=== PATIENT | female | born 1965 | race African-American/Black ===

== ENCOUNTER 2016-12-19 22:06 | Emergency (ER) | payer SELFPAY ==
[~2016-12-19 22:06] MED LIST: ATOR40TA49 PO; LISI-587 PO
[2016-12-19 22:07] VITALS: BP 196/105; PULSE 73; RESP 16; TEMP 97.8; O2SAT 96
== END 2016-12-19 23:04 | disposition left against medical advice (07) ==
LOC: NED 22:06
DX: Z53.21 Procedure and treatment not carried out due to patient leaving prior to being seen by health care provider (principal)
CPT/HCPCS: 99281

== ENCOUNTER 2018-03-10 21:38 | Emergency (ER) | payer SELFPAY ==
[2018-03-11] MEDS ORDERED: ATOR40TA16 PO (20:26)
[2018-03-11] MEDS ORDERED: METF500T PO (20:26)
[2018-03-11] MEDS ORDERED: LISI20TA3 PO (20:26)
== END 2018-03-10 22:11 | disposition left against medical advice (07) ==
LOC: NED 21:38
DX: R10.9 Unspecified abdominal pain (principal); Z53.21 Procedure and treatment not carried out due to patient leaving prior to being seen by health care provider
CPT/HCPCS: 99281

== ENCOUNTER 2018-03-11 19:19 | Inpatient (IN) | payer SELFPAY ==
[2018-03-11] MEDS ORDERED: IOHEXOL 350 MG/ML 10 ML VIAL (for RAD DIAG) IVCONTRAST ONE (19:20)
[2018-03-11 19:35] VITALS: PULSE 105; RESP 16; TEMP 98.4; O2SAT 98
[2018-03-11] MEDS ORDERED: METF500T PO (20:26)
[2018-03-11] MEDS ORDERED: ATOR40TA16 PO (20:26)
[2018-03-11] MEDS ORDERED: LISI20TA3 PO (20:26)
[2018-03-11] MEDS ORDERED: SODIUM CHLORIDE 0.9% FLUSH 10 ML FLUSH IV FLUSH PRN (20:45)
[2018-03-11] MEDS ORDERED: SODIUM CHLOR 0.9% 1000 ML INJ 1,000 ML IV SCH (20:45)
[2018-03-11] MEDS ORDERED: MORPHINE SULFATE 4 MG/ML INJ IV PUSH ONE (20:45)
--- NOTE | 2018-03-11 20:48 | PD ---
HPI Chief Complaint: Flank/Kidney Pain Time Seen by Provider: 20:45 Travel History International Travel<30 days: No Contact w/Intl Traveler<30days: No Traveled to known affect area: No History of Present Illness HPI 52-year-old female presents to the emergency department for 2 days of left lower quadrant abdominal pain that she considers severe. Patient has had nausea with some vomiting and has noted some blood in her stool. Patient does not know she has had a previous history of colitis or diverticulitis. Patient denies history of kidney stones. Patient had urinary frequency and urgency but no hematuria. Patient had subjective chills but denies fever. Patient is unable to identify exacerbating or alleviating factors. Past medical history is significant for hypertension dyslipidemia and diabetes. Patient has had previous . PFS Past Medical History Narrative Medical Diabetes hypertension dyslipidemia CVA no tobacco use nursing notes reviewed Arthritis: No Asthma: No Atrial Fibrillation: No Autoimmune Disease: No Blood Disorders: No Anxiety: No Depression: Yes Heart Rhythm Problems: No Cancer: No Cardiac Catheterization: No Cardiovascular Problems: Yes (PALPITATIONS RECENTLY) High Cholesterol: Yes Chemotherapy: No Chest Pain: Yes Congestive Heart Failure: No COPD: No Cerebrovascular Accident: Yes (PT STATES "SLIGHT STROKE") Diabetes: Yes Patient Takes Glucophage: Yes Diminished Hearing: No Endocrine: No GERD: No Glaucoma: No Genitourinary: No Headaches: Yes Hepatitis: No Hiatal Hernia: No Hypertension: Yes Immune Disorder: No Kidney Stones: No Musculoskeletal: Yes Neurologic: No Psychiatric: No Reproductive: No Respiratory: No Migraines: No Myocardial Infarction: No Radiation Therapy: No Renal Failure: No Seizures: No Sickle Cell Disease: No Sleep Apnea: No Thyroid Disease: No Ulcer: No PNEUMOCCOCAL Vaccine (Year): 1 ?: Not : 5 Para: 4 Miscarriage: 1 Tubal Ligation: Yes Past Surgical History Abdominal Surgery: No AICD: No Appendectomy: No Arteriovenous Shunt: No Cardiac Surgery: No Section: Yes (X 2) Cholecystectomy: No Coronary Artery Bypass Graft: No Ear Surgery: No Endocrine Surgery: No Eye Surgery: No Genitourinary Surgery: No Gynecologic Surgery: Yes (C SECTION AND TUBALIGATION) Insulin Pump: No Joint Replacement: No Oral Surgery: Yes (LIP SURGERY) Pacemaker: No Thoracic Surgery: No Other Surgery: Yes (TUMOR FROM LIP REMOVED AGE 9-TUMOR REOVED FROM RIGHT ARM AGE 2) Social History Alcohol Use: No Tobacco Use: No Substance Use: No Allergies-Medications (Allergen,Severity, Reaction): Coded Allergies: No Known Allergies (Verified Adverse Reaction, Unknown, 03/11/18) Reported Meds & Prescriptions Reported Meds & Active Scripts Active Reported Metformin (Metformin HCl) 500 Mg Tab 500 Mg PO DAILY With a meal Atorvastatin (Atorvastatin Calcium) 40 Mg Tab 40 Mg PO HS Lisinopril-Hctz 20-25 Mg Tab 1 Tab PO DAILY Review of Systems Except as stated in HPI: all other systems reviewed are Neg Physical Exam Narrative GENERAL: Well-developed well-nourished female no acute distress no respiratory distress SKIN: Warm and dry. HEAD: Normocephalic. EYES: No scleral icterus. No injection or drainage. NECK: Supple, trachea midline. No JVD or lymphadenopathy. CARDIOVASCULAR: Regular rate and rhythm without murmurs, gallops, or rubs. RESPIRATORY: Breath sounds equal bilaterally. No accessory muscle use. GASTROINTESTINAL: Abdomen soft, tender left lower quadrant to palpation without guarding or rebound, nondistended. MUSCULOSKELETAL: No cyanosis, or edema. BACK: Nontender without obvious deformity. No CVA tenderness. Data Data Last Documented VS Vital Signs Date Time Temp Pulse Resp B/P (MAP) Pulse Ox O2 Delivery O2 Flow Rate FiO2 03/11/18 22:00 99 16 154/81 (105) 96 Room Air 03/11/18 19:35 98.4 Orders Orders Complete Blood Count With Diff (03/11/18 20:45) Comprehensive Metabolic Panel (03/11/18 20:45) Lipase (03/11/18 20:45) Lactic Acid (03/11/18 20:45) Urinalysis - C+S If Indicated (03/11/18 20:45) Ct Abd/Pel W Iv Contrast(Rout) (03/11/18 20:45) Iv Access Insert/Monitor (03/11/18 20:45) Ecg Monitoring (03/11/18 20:45) Oximetry (03/11/18 20:45) Sodium Chlor 0.9% 1000 Ml Inj (Ns 1000 M (03/11/18 20:45) Sodium Chloride 0.9% Flush (Ns Flush) (03/11/18 20:45) Chest, Single Ap (03/11/18 20:45) Morphine Inj (Morphine Inj) (03/11/18 20:45) Iohexol 350 Inj (Omnipaque 350 Inj) (03/11/18 19:20) Ciprofloxacin 400 Mg Premix (Cipro 400 M (03/12/18 00:00) Metronidazole 500 Mg Inj (Flagyl 500 Mg (03/12/18 00:00) Morphine Inj (Morphine Inj) (03/12/18 00:00) Labs Laboratory Tests Test 03/11/18 21:00 03/11/18 21:05 White Blood Count 15.5 TH/MM3 Red Blood Count 4.46 MIL/MM3 Hemoglobin 12.8 GM/DL Hematocrit 38.5 % Mean Corpuscular Volume 86.5 FL Mean Corpuscular Hemoglobin 28.7 PG Mean Corpuscular Hemoglobin Concent 33.1 % Red Cell Distribution Width 13.9 % Platelet Count 368 TH/MM3 Mean Platelet Volume 8.8 FL Neutrophils (%) (Auto) 72.5 % Lymphocytes (%) (Auto) 19.7 % Monocytes (%) (Auto) 6.9 % Eosinophils (%) (Auto) 0.2 % Basophils (%) (Auto) 0.7 % Neutrophils # (Auto) 11.2 TH/MM3 Lymphocytes # (Auto) 3.0 TH/MM3 Monocytes # (Auto) 1.1 TH/MM3 Eosinophils # (Auto) 0.0 TH/MM3 Basophils # (Auto) 0.1 TH/MM3 CBC Comment DIFF FINAL Differential Comment Blood Urea Nitrogen 8 MG/DL Creatinine 0.88 MG/DL Random Glucose 73 MG/DL Total Protein 9.1 GM/DL Albumin 3.8 GM/DL Calcium Level 9.7 MG/DL Alkaline Phosphatase 93 U/L Aspartate Amino Transf (AST/SGOT) 22 U/L Alanine Aminotransferase (ALT/SGPT) 25 U/L Total Bilirubin 0.4 MG/DL Sodium Level 137 MEQ/L Potassium Level 3.6 MEQ/L Chloride Level 98 MEQ/L Carbon Dioxide Level 26.2 MEQ/L Anion Gap 13 MEQ/L Estimat Glomerular Filtration Rate 82 ML/MIN Lactic Acid Level 1.2 mmol/L Lipase 48 U/L Urine Color YELLOW Urine Turbidity CLEAR Urine pH 5.5 Urine Specific [place] 1.018 Urine Protein TRACE mg/dL Urine Glucose (UA) NEG mg/dL Urine Ketones 80 mg/dL Urine Occult Blood NEG Urine Nitrite NEG Urine Bilirubin NEG Urine Urobilinogen LESS THAN 2.0 MG/DL Urine Leukocyte Esterase SMALL Urine RBC LESS THAN 1 /hpf Urine WBC 3 /hpf Urine Squamous Epithelial Cells 2 /hpf Urine Hyaline Casts 2 /lpf Urine Mucus FEW /lpf Microscopic Urinalysis Comment CULT NOT INDICATED MDM Medical Decision Making Medical Screen Exam Complete: Yes Emergency Medical Condition: Yes Medical Record Reviewed: Yes Interpretation(s) Last Impressions Chest X-Ray 03/11/182044 Signed Impressions: CONCLUSION: Streakiness within left lung base consistent with atelectasis or minimal infilt rate. Clinical correlation is recommended. Abdomen/Pelvis CT 03/11/182044 Signed Impressions: CONCLUSION: 1. Focal wall thickening and pericolic inflammatory changes involving the dist al descending colon consistent with probable acute diverticulitis. No pericolic abscess is noted. 2. Enlarged fibroid uterus. 3. 11 mm left renal cyst. 4. Bibasilar atelectatic changes. CBC & BMP Diagram 03/11/18 21:00 Total Protein 9.1 H, Albumin 3.8, Calcium Level 9.7, Alkaline Phosphatase 93, Aspartate Amino Transf (AST/SGOT) 22, Alanine Aminotransferase (ALT/SGPT) 25, Total Bilirubin 0.4 Vital Signs Date Time Temp Pulse Resp B/P (MAP) Pulse Ox O2 Delivery O2 Flow Rate FiO2 03/11/18 22:00 99 16 154/81 (105) 96 Room Air 03/11/18 21:19 107 15 171/82 (111) 99 Room Air 03/11/18 21:18 20 99 Room Air 03/11/18 19:35 98.4 105 16 98 Differential Diagnosis Abdominal pain, diverticulitis, colitis, bowel obstruction also consider renal colic unlikely ischemic colitis Narrative Course IV access obtained specimens collected and sent for resulting patient administered IV fluid bolus morphine 2 mg IV and Zofran 4 mg sublingual; CT abdomen pelvis ordered Sepsis Criteria SIRS Criteria (2 or more): Heart rate over 90, WBC > 14146, < 4000 or > 10% bands Sepsis Criteria (SIRS+source): Infect source susp/known (diverticulitis) Diagnosis Primary Impression: Diverticulitis Mirna Rodriguez MD Mar 11, 2018 20:48
[2018-03-11 21:18] VITALS: RESP 20; O2SAT 99
[2018-03-11 21:19] VITALS: BP 171/82; PULSE 107; RESP 15; O2SAT 99
--- NOTE | 2018-03-11 21:43 | RADRPT ---
EXAM DATE: 03/11/2018 9:39 PM EDT AGE/SEX: 52 years / Female INDICATIONS: Upper abdominal pain. CLINICAL DATA: This is the patient's initial encounter. Patient reports that signs and symptoms have been present for 2 days and indicates a pain score of 10/10. MEDICAL/SURGICAL HISTORY: Hypercholesterolemia. Hypertension. Diabetes. Cerebrovascular acci dent. Palpitations. section. Tubal ligation. Wrist surgery. COMPARISON: [facility] [place]ST SINGLE AP, 03/21/2013. . FINDINGS: Minimal streakiness is noted within the left lung base consistent with atelectasis or minimal infiltr ate. Clinical correlation is recommended. The right lung is clear. The heart is normal. The pulmonary vascular pattern is normal. CONCLUSION: Streakiness within left lung base consistent with atelectasis or minimal infiltrate. Clinical correla tion is recommended. Electronically signed by: Dangelo Garcia MD 03/11/2018 9:41 PM EDT
[2018-03-11 21:50] LABS: BILIRUBIN, URINE NEG (NEG); BLOOD, URINE NEG (NEG); GLUCOSE,URINE NEG (NEG); HYALINE CAST, URINE 2 /lpf (RARE); KETONE, URINE 80 mg/dL (NEG); MUCUS URINE FEW /lpf (OCC); NITRITE,URINE NEG (NEG); PH, URINE 5.5 (5.0-8.5); SQUAMOUS EPITHELIAL CELL URINE 2 /hpf (0-5); URINE COLOR YELLOW (YELLW/STRAW); URINE LEUKOCYTE ESTERASE SMALL (NEG)
[2018-03-11 21:53] LABS: AUTOMATED NEUTROPHIL # 11.2 TH/MM3 (1.8-7.7); BASOPHIL # 0.1 TH/MM3 (0-0.2); BASOPHIL % 0.7 % (0.0-2.0); EOSINOPHIL % 0.2 % (0.0-4.0); HEMATOCRIT 38.5 % (35.0-46.0); HEMOGLOBIN 12.8 GM/DL (11.6-15.3); LYMPH % 19.7 % (9.0-44.0); MEAN CELL VOLUME 86.5 FL (80.0-100.0); MEAN CORPUSCULAR HEMOGLOBIN 28.7 PG (27.0-34.0); MEAN CORPUSCULAR HGB CONC 33.1 % (32.0-36.0); MEAN PLATELET VOLUME 8.8 FL (7.0-11.0); MONO % 6.9 % (0.0-8.0); MONOCYTE # 1.1 TH/MM3 (0-0.9); NEUT % 72.5 % (16.0-70.0); PLATELET COUNT 368 TH/MM3 (150-450); RED BLOOD COUNT 4.46 MIL/MM3 (4.00-5.30); RED CELL DISTRIBUTION WIDTH 13.9 % (11.6-17.2); WHITE BLOOD COUNT 15.5 TH/MM3 (4.0-11.0)
[2018-03-11 22:00] VITALS: BP 154/81; PULSE 99; RESP 16; O2SAT 96
[2018-03-11 22:04] LABS: ALT (GPT) 25 U/L (10-53)
[2018-03-11 22:06] LABS: ALKALINE PHOSPHATASE 93 U/L (45-117); TOTAL BILIRUBIN ADULT 0.4 MG/DL (0.2-1.0); TOTAL PROTEIN 9.1 GM/DL (6.4-8.2)
[2018-03-11 22:08] LABS: ALBUMIN 3.8 GM/DL (3.4-5.0); AST (GOT) 22 U/L (15-37); BICARBONATE 26.2 MEQ/L (21.0-32.0); BLOOD UREA NITROGEN 8 MG/DL (7-18); CALCIUM 9.7 MG/DL (8.5-10.1); CHLORIDE 98 MEQ/L (98-107); CREATININE 0.88 MG/DL (0.50-1.00); GLOMERULAR FILTRATION RATE 82 ML/MIN (>89); GLUCOSE,RANDOM 73 MG/DL (74-106); SODIUM (NA) 137 MEQ/L (136-145)
--- NOTE | 2018-03-11 23:06 | RADRPT ---
EXAM DATE: 03/11/2018 10:56 PM EDT AGE/SEX: 52 years / Female INDICATIONS: Left flank pain. CLINICAL DATA: This is the patient's initial encounter. Patient reports that signs and symptoms have been present for 1 day and indicates a pain score of 9/10. MEDICAL/SURGICAL HISTORY: Cardiovascular disease. Hypertension. Diabetes mellitus type II. Tu bal ligation. ORAL CONTRAST: No oral contrast ingested. RADIATION DOSE: 10.44 CTDI (mGy) COMPARISON: No prior [place] exams available for comparison. TECHNIQUE: Multiple contiguous axial images were obtained through the abdomen and pelvis following b olus infusion of 92 ml Omnipaque 350 (iohexol) nonionic water-soluble contrast as a single exam dos e. No oral contrast ingested. Using automated exposure control and adjustment of the mA and/or kV ac cording to patient size, the radiation dose was kept as low as reasonably achievable to obtain optima l diagnostic quality images. FINDINGS: Lower Lungs: Bibasilar atelectatic changes are noted. Liver: The liver has a homogeneous density without space-occupying lesion. There is no dilation of th e biliary tree. Spleen: Homogeneous density without enlargement. Pancreas: Unremarkable without mass or calcification. Kidneys: Normal in size and shape. No evidence of mass or hydronephrosis. A 1.1 cm left renal cyst i s noted. Adrenal Glands: Unremarkable. Aorta: The aorta and proximal iliac vessels are grossly unremarkable without aneurysmal dilation. Bowel/Mesentery: There is focal wall thickening and pericolic inflammatory changes involving the dis farzaneh descending colon consistent with probable acute diverticulitis. No pericolic abscess is noted. Ap pendix is normal. Abdominal Wall: Intact. Retroperitoneum: No evidence of adenopathy in the retrocrural, para-aortic, or deep pelvic regions. Bladder: Contours are smooth. Reproductive Organs: There is an enlarged fibroid uterus. Inguinal: The inguinal region is unremarkable without evidence of adenopathy. Bony Structures: Unremarkable. CONCLUSION: 1. Focal wall thickening and pericolic inflammatory changes involving the distal descending colon co nsistent with probable acute diverticulitis. No pericolic abscess is noted. 2. Enlarged fibroid uterus. 3. 11 mm left renal cyst. 4. Bibasilar atelectatic changes. Electronically signed by: Dangelo Garcia MD 03/11/2018 11:04 PM EDT
[2018-03-12] VITALS (19 sets, daily range): BP systolic 127–162; BP diastolic 64–92; PULSE 80–104; RESP 16–22; TEMP 98.1–99.4; O2SAT 94–98
[2018-03-12] MEDS ORDERED: MORPHINE SULFATE 4 MG/ML INJ IV PUSH ONE
[2018-03-12] MEDS ORDERED: CIPROFLOXACIN 400 MG PREMIX 200 ML IV ONE
[2018-03-12] MEDS ORDERED: metroNIDAZOLE 500 MG INJ 100 ML IV ONE
[2018-03-12] MEDS ORDERED: SODIUM CHLORIDE 0.9% FLUSH 10 ML FLUSH IV FLUSH PRN (00:30)
[2018-03-12] MEDS ORDERED: SENNOSIDES 8.6 MG TAB PO PRN (00:30)
[2018-03-12] MEDS ORDERED: GLUCAGON 1 MG/ML VIAL OTHER PRN (00:30)
[2018-03-12] MEDS ORDERED: ACETAMINOPHEN 325 MG TAB PO PRN (00:30)
[2018-03-12] MEDS ORDERED: MORPHINE SULFATE 2 MG/ML SYRINGE IV PUSH PRN (00:30)
[2018-03-12] MEDS ORDERED: LACTULOSE SYRUP 20 GM/30 ML CUP PO PRN (00:30)
[2018-03-12] MEDS ORDERED: DEXTROSE 50% IN WATER 50 ML VIAL(D50) IV PUSH PRN (00:30)
[2018-03-12] MEDS ORDERED: BISACODYL 10 MG SUPP RECTAL PRN (00:30)
[2018-03-12] MEDS ORDERED: METOCLOPRAMIDE HCL 10 MG/2 ML VIAL IV PUSH PRN (00:30)
--- NOTE | 2018-03-12 00:58 | HHI.HP ---
HPI Service [facility] Primary Care Physician No Primary Care Physician Admission Diagnosis diverticulitis; sepsis Diagnoses: (1) Sepsis Diagnosis: Principal (2) Diverticulitis Diagnosis: Principal (3) Intractable pain Diagnosis: Principal (4) HTN (hypertension) Diagnosis: Principal (5) DM (diabetes mellitus) Diagnosis: Principal Travel History International Travel<30 Days: No Contact w/Intl Traveler <30 Da: No Traveled to Known Affected Are: No History of Present Illness This is a 52-year-old female with a PMH of HTN, Hyperlipidemia, h/o CVA and DM who presented to ER with complaints of abdominal pain x2 days. Notes pain located mostly in LLQ. Pain is intermittent, cramping, severe, 10/10, non- radiating, w/ associated nausea/vomiting. Denies fever or chills. On arrival, BP 171/82, HR 107, O2 sat 99% on RA, Afebrile. WBC 15.5. Chemistry unremarkable except for GFR 82. Lactic Acid 1.2. UA with small LE, mild bacteriuria. CT Abdomen/Pelvis focal wall thickening and pericolic inflammatory changes involving distal descending colon consistent with acute diverticulitis. CXR with streaking left lung base consistent with atelectasis. S/p Cipro/Flagyl in ER. Review of Systems Except as stated in HPI: all other systems reviewed are Neg ROS: 14 point review of systems otherwise negative. Past Family Social History Past Medical History PMH: HTN, Hyperlipidemia, h/o CVA and DM Past Surgical History PAST SURGICAL HISTORY: , Tubal Ligation, Lip Surgery Allergies: Coded Allergies: No Known Allergies (Verified Adverse Reaction, Unknown, 03/11/18) Family History PAST FAMILY HISTORY: Reviewed. No h/o DM or CAD Social History PAST SOCIAL HISTORY: Negative for alcohol, tobacco or drugs. Physical Exam Vital Signs Vital Signs Date Time Temp Pulse Resp B/P (MAP) Pulse Ox O2 Delivery O2 Flow Rate FiO2 03/11/18 22:00 99 16 154/81 (105) 96 Room Air 03/11/18 21:19 107 15 171/82 (111) 99 Room Air 03/11/18 21:18 20 99 Room Air 03/11/18 19:35 98.4 105 16 98 Physical Exam PE: GENERAL: Pleasant middle-aged black female in no acute distress, sleepy from medication but answering questions appropriately. HEENT: PERRLA, EOMI. No scleral icterus or conjunctival pallor. No lid lag or facial droop. CARDIOVASCULAR: Regular rate and rhythm. No obvious murmurs to auscultation. No chest tenderness to palpation. RESPIRATORY: No obvious rhonchi or wheezing. Clear to auscultation. Breath sounds equal bilaterally. GASTROINTESTINAL: Abdomen soft, significant tenderness to palpation mostly LLQ, nondistended. BS normal. MUSCULOSKELETAL: Extremities without clubbing, cyanosis, or edema. No obvious deformities. NEUROLOGICAL: Awake, alert and oriented x4. No focal neurologic deficits. Moving both upper and lower extremities spontaneously. Laboratory Laboratory Tests Test 03/11/18 21:00 03/11/18 21:05 White Blood Count 15.5 Red Blood Count 4.46 Hemoglobin 12.8 Hematocrit 38.5 Mean Corpuscular Volume 86.5 Mean Corpuscular Hemoglobin 28.7 Mean Corpuscular Hemoglobin Concent 33.1 Red Cell Distribution Width 13.9 Platelet Count 368 Mean Platelet Volume 8.8 Neutrophils (%) (Auto) 72.5 Lymphocytes (%) (Auto) 19.7 Monocytes (%) (Auto) 6.9 Eosinophils (%) (Auto) 0.2 Basophils (%) (Auto) 0.7 Neutrophils # (Auto) 11.2 Lymphocytes # (Auto) 3.0 Monocytes # (Auto) 1.1 Eosinophils # (Auto) 0.0 Basophils # (Auto) 0.1 CBC Comment DIFF FINAL Differential Comment Blood Urea Nitrogen 8 Creatinine 0.88 Random Glucose 73 Total Protein 9.1 Albumin 3.8 Calcium Level 9.7 Alkaline Phosphatase 93 Aspartate Amino Transf (AST/SGOT) 22 Alanine Aminotransferase (ALT/SGPT) 25 Total Bilirubin 0.4 Sodium Level 137 Potassium Level 3.6 Chloride Level 98 Carbon Dioxide Level 26.2 Anion Gap 13 Estimat Glomerular Filtration Rate 82 Lactic Acid Level 1.2 Lipase 48 Urine Color YELLOW Urine Turbidity CLEAR Urine pH 5.5 Urine Specific [place] 1.018 Urine Protein TRACE Urine Glucose (UA) NEG Urine Ketones 80 Urine Occult Blood NEG Urine Nitrite NEG Urine Bilirubin NEG Urine Urobilinogen LESS THAN 2.0 Urine Leukocyte Esterase SMALL Urine RBC LESS THAN 1 Urine WBC 3 Urine Squamous Epithelial Cells 2 Urine Hyaline Casts 2 Urine Mucus FEW Microscopic Urinalysis Comment CULT NOT INDICATED Result Diagram: 03/11/18209903/11/182099 Kay VTE Risk Assessment Caprini VTE Risk Assessment: No/Low Risk (score <= 1) Caprini Risk Assessment Model Point Value = 1 Point Value = 2 Point Value = 3 Point Value = 5 Age 41-60 Minor surgery BMI > 25 kg/m2 Swollen legs Varicose veins or History of unexplained or recurrent spontaneous Oral contraceptives or hormone replacement Sepsis (< 1 month) Serious lung disease, including pneumonia (< 1 month) Abnormal pulmonary function Acute myocardial infarction Congestive heart failure (< 1 month) History of inflammatory bowel disease Medical patient at bed rest Age 61-74 Arthroscopic surgery Major open surgery (> 45 min) Laparoscopic surgery (> 45 min) Malignancy Confined to bed (> 72 hours) Immobilizing plaster cast Central venous access Age >= 75 History of VTE Family history of VTE Factor V Leiden Prothrombin [id number] Lupus anticoagulant Anticardiolipin antibodies Elevated serum homocysteine Heparin-induced thrombocytopenia Other congenital or acquired thrombophilia Stroke (< 1 month) Elective arthroplasty Hip, pelvis, or leg fracture Acute spinal cord injury (< 1 month) Prophylaxis Regimen Total Risk Factor Score Risk Level Prophylaxis Regimen 0-1 Low Early ambulation 2 Moderate Order ONE of the following: *Sequential Compression Device (SCD) *Heparin 5000 units SQ BID 3-4 Higher Order ONE of the following medications: *Heparin 5000 units SQ TID *Enoxaparin/Lovenox 40 mg SQ daily (WT < 150 kg, CrCl > 30 mL/min) *Enoxaparin/Lovenox 30 mg SQ daily (WT < 150 kg, CrCl > 10-29 mL/min) *Enoxaparin/Lovenox 30 mg SQ BID (WT < 150 kg, CrCl > 30 mL/min) AND/OR *Sequential Compression Device (SCD) 5 or more Highest Order ONE of the following medications: *Heparin 5000 units SQ TID (Preferred with Epidurals) *Enoxaparin/Lovenox 40 mg SQ daily (WT < 150 kg, CrCl > 30 mL/min) *Enoxaparin/Lovenox 30 mg SQ daily (WT < 150 kg, CrCl > 10-29 mL/min) *Enoxaparin/Lovenox 30 mg SQ BID (WT < 150 kg, CrCl > 30 mL/min) AND *Sequential Compression Device (SCD) Assessment and Plan Problem List: (1) Sepsis ICD Code: A41.9 - Sepsis, unspecified organism (2) Diverticulitis ICD Code: K57.92 - Diverticulitis of intestine, part unspecified, without perforation or abscess without bleeding Status: Acute (3) Intractable pain ICD Code: R52 - Pain, unspecified (4) HTN (hypertension) ICD Code: I10 - Essential (primary) hypertension (5) DM (diabetes mellitus) ICD Code: E11.9 - Type 2 diabetes mellitus without complications Assessment and Plan A/P: 1. Sepsis: HR 105, WBC 15, Source-Diverticulitis, s/p Cipro/Flagyl in ER, will continue w/ IV Abx. IVF for hydration. 2. Diverticulitis: acute onset severe LLQ pain, CT Abd/Pelvis w/ acute diverticulitis descending colon, images reviewed by me. No h/o diverticulitis. Continue w/ IV Abx, analgesics/antiemetics as needed. 3. Intractable Pain: s/p multiple doses of Morphine in ER w/ mild improvement , pain secondary to above, continue w/ analgesics/antiemetics 4. HTN: Uncontrolled. Likely compounded by intractable pain, monitor BP, antihypertensives as needed for BP >180 5. DM: Sliding scale w/ Accu-Cheks, hold Metformin. 6. DVT Prophylaxis: SCD/Teds 7. Social work for d/c planning as needed. 8. Case discussed w/ ER physician at length, labs/records/imaging reviewed by me. Physician Certification 2 Midnight Certification Type: Admission for Inpatient Services Order for Inpatient Services The services are ordered in accordance with Medicare regulations or non- Medicare payer requirements, as applicable. In the case of services not specified as inpatient-only, they are appropriately provided as inpatient services in accordance with the 2-midnight benchmark. Estimated LOS (days): 2 days is the estimated time the patient will need to remain in the hospital, assuming treatment plan goals are met and no additional complications. Post-Hospital Plan: Not yet determined Erin Viramontes MD Mar 12, 2018 00:58
[2018-03-12] MEDS: SODIUM CHLOR 0.9% 1000 ML INJ 1,000 ML IV SCH ×3 (01:32→20:29)
[2018-03-12] MEDS: PIPERACIL-TAZO 4.5 GM PREMIX 100 ML IV SCH ×4 (05:46→23:57)
[2018-03-12] MEDS: INSULIN ASPART SUPPLEMENTAL SCALE SQ SCH ×4 (08:00→20:29)
[2018-03-12] MEDS: ACETAMINOPHEN/HYDROcodone 325 MG/5 MG TAB PO PRN ×3 (08:07→18:11)
[2018-03-12] MEDS: SODIUM CHLORIDE 0.9% FLUSH 10 ML FLUSH IV FLUSH SCH ×2 (09:35→20:29)
[2018-03-12] MEDS: MAGNESIUM HYDROXIDE SUSP 30 ML CUP PO PRN (09:36)
[2018-03-12] MEDS: DOCUSATE SODIUM 50 MG/SENNA 8.6 MG TAB PO SCH ×2 (09:36→20:28)
--- NOTE | 2018-03-12 10:14 | HHI.PR ---
Subjective Remarks Patient seen and examined for follow-up of acute diverticulitis. She continues to endorse some left lower quadrant pain but states it is improved with pain medication. Endorses some mild nausea this morning but denies vomiting or diarrhea. She states she has had a colonoscopy in the past but is been at least 10 years. She currently does not have a PCP. She states about a week ago she had some bright red blood when she wiped. She states she is unsure if she has hemorrhoids. Objective Vital Signs Date Time Temp Pulse Resp B/P (MAP) Pulse Ox O2 Delivery O2 Flow Rate FiO2 03/12/18 09:10 18 03/12/18 07:00 99.4 102 22 161/92 (115) 95 03/12/18 06:00 102 03/12/18 05:00 96 03/12/18 04:00 96 03/12/18 03:36 94 16 152/85 (107) 96 03/12/18 03:00 94 03/12/18 02:00 93 03/12/18 01:40 98.7 93 18 155/89 (111) 97 03/12/18 01:27 03/12/18 01:07 98 17 127/64 (85) 96 Aerosol Mask 03/11/18 22:00 99 16 154/81 (105) 96 Room Air 03/11/18 21:19 107 15 171/82 (111) 99 Room Air 03/11/18 21:18 20 99 Room Air 03/11/18 19:35 98.4 105 16 98 I/O 03/11/18 03/11/18 03/11/18 03/12/18 03/12/18 03/12/18 07:00 15:00 23:00 07:00 15:00 23:00 Intake Total 1340 ml Output Total 350 ml Balance 990 ml Intake Oral 240 ml IV Total 1100 ml Output Urine Total 350 ml Result Diagram: 03/11/18209903/11/182099 Imaging Chest X-Ray 03/11/182044 Signed Impressions: CONCLUSION: Streakiness within left lung base consistent with atelectasis or minimal infilt rate. Clinical correlation is recommended. Abdomen/Pelvis CT 03/11/182044 Signed Impressions: CONCLUSION: 1. Focal wall thickening and pericolic inflammatory changes involving the dist al descending colon consistent with probable acute diverticulitis. No pericolic abscess is noted. 2. Enlarged fibroid uterus. 3. 11 mm left renal cyst. 4. Bibasilar atelectatic changes. Objective Remarks GENERAL: WN, WD -[place] female resting in bed in NAD. SKIN: Warm and dry. HEENT: AT/NC. Pupils equal and round. MMM. NECK: Supple no tender LAD or JVD. HEART: Tachycardic with a regular rhythm. LUNGS: CTAB without wheezes or crackles. ABDOMEN: Hypoactive bowel sounds. Abdomen is soft, nondistended, and tender to palpation in the left lower quadrant. EXTREMITIES: No LE edema. 2+ pedal pulses. NEURO: Awake and alert. PSYCH: Appropriate mood and affect. A/P Problem List: (1) Diverticulitis ICD Code: K57.92 - Diverticulitis of intestine, part unspecified, without perforation or abscess without bleeding Status: Acute (2) Sepsis ICD Code: A41.9 - Sepsis, unspecified organism Assessment and Plan 52-year-old -[place] female with a history of diabetes, hypertension, and hyperlipidemia admitted overnight with acute diverticulitis. 1. Diverticulitis -Leukocytosis and left lower quadrant pain consistent with findings on CT abdomen showing evidence of acute diverticulitis with no abscess or perforation -Received IV Cipro and Flagyl in the ED but was changed to Zosyn on admission -Continue Zosyn -Antiemetics and pain control -IV hydration -Clear liquid diet, advance as tolerated -Monitor for GI bleeding, H&H WNL -Will need colonoscopy as outpatient 2. Sepsis -On admission patient tachycardic with leukocytosis and evidence of infection ( diverticulitis) -Lactic acid within normal limit -No blood cultures done -Continue antibiotics as above 3. Hypertension -BPs elevated but could possibly be secondary to pain -Continue home meds for now but may have to adjust if BPs continued to be elevated despite pain control -Hydralazine as needed 4. Diabetes -Hold home metformin and place on sliding scale insulin with Accu-Cheks per protocol 5. Hyperlipidemia -Continue home statin DVT prophylaxis: Lovenox Discharge Planning Anticipate D/C in 2-3 days if patient continues to improve and can tolerate a diet Gunjan Dawson MD Mar 12, 2018 10:14
[2018-03-12] MEDS ORDERED: hydrALAZINE HCL 20 MG/ML VIAL IV PUSH PRN (10:15)
[2018-03-12] MEDS: ENOXAPARIN SODIUM 40 MG/0.4 ML SYRINGE SQ SCH (11:24)
[2018-03-13] VITALS: BP 157/79; PULSE 84; RESP 18; TEMP 98.2; O2SAT 97
[2018-03-13] MEDS: ACETAMINOPHEN/HYDROcodone 325 MG/5 MG TAB PO PRN (00:02)
[2018-03-13 03:48] VITALS: PULSE 76
[2018-03-13 04:00] VITALS: BP 159/84; PULSE 74; RESP 18; TEMP 97.9; O2SAT 98
[2018-03-13] MEDS: PIPERACIL-TAZO 4.5 GM PREMIX 100 ML IV SCH (04:50)
[2018-03-13] MEDS: MAGNESIUM HYDROXIDE SUSP 30 ML CUP PO PRN (04:50)
[2018-03-13] MEDS: SODIUM CHLOR 0.9% 1000 ML INJ 1,000 ML IV SCH (06:27)
[2018-03-13] MEDS: SODIUM CHLORIDE 0.9% FLUSH 10 ML FLUSH IV FLUSH SCH (07:51)
[2018-03-13 08:00] VITALS: BP 193/96; PULSE 80; RESP 17; TEMP 97.8; O2SAT 97
[2018-03-13] MEDS: INSULIN ASPART SUPPLEMENTAL SCALE SQ SCH (08:00)
--- NOTE | 2018-03-13 08:39 | HHI.PR ---
Subjective Remarks Improved. Tolerates diet. No n/v/d/c. No abd pain. No fever or chills. Objective Vitals Vital Signs Date Time Temp Pulse Resp B/P (MAP) Pulse Ox O2 Delivery O2 Flow Rate FiO2 03/13/18 04:00 97.9 74 18 159/84 (109) 98 03/13/18 03:48 76 03/13/18 00:00 98.2 84 18 157/79 (105) 97 03/12/18 23:56 81 03/12/18 20:00 98.3 80 18 146/91 (109) 98 03/12/18 19:54 81 03/12/18 16:00 98.3 100 20 162/84 (110) 94 03/12/18 13:00 92 03/12/18 12:00 92 03/12/18 11:00 98.1 97 16 132/75 (94) 96 03/12/18 11:00 88 03/12/18 10:00 88 03/12/18 09:10 18 03/12/18 09:00 92 I/O 03/12/18 03/12/18 03/12/18 03/13/18 03/13/18 03/13/18 07:00 15:00 23:00 07:00 15:00 23:00 Intake Total 1340 ml 1720 ml 100 ml Output Total 350 ml Balance 990 ml 1720 ml 100 ml Intake Oral 240 ml 720 ml IV Total 1100 ml 1000 ml 100 ml Output Urine Total 350 ml # Voids 2 Result Diagram: 03/11/18209903/11/182099 Imaging Last Impressions Chest X-Ray 03/11/182044 Signed Impressions: CONCLUSION: Streakiness within left lung base consistent with atelectasis or minimal infilt rate. Clinical correlation is recommended. Abdomen/Pelvis CT 03/11/182044 Signed Impressions: CONCLUSION: 1. Focal wall thickening and pericolic inflammatory changes involving the dist al descending colon consistent with probable acute diverticulitis. No pericolic abscess is noted. 2. Enlarged fibroid uterus. 3. 11 mm left renal cyst. 4. Bibasilar atelectatic changes. Objective Remarks GENERAL: Pleasant 52 yo -[place] female resting in bed in [facility]. CARDIOVASCULAR: Regular rate and rhythm. RESPIRATORY: No accessory muscle use. Clear to auscultation. Breath sounds equal bilaterally. GASTROINTESTINAL: Abdomen soft, non-tender, nondistended. Hepatic and splenic margins not palpable. MUSCULOSKELETAL: Extremities without clubbing, cyanosis, or edema. No obvious deformities. NEUROLOGICAL: Awake and alert. No obvious cranial nerve deficits. Motor grossly within normal limits. Five out of 5 muscle strength in the arms and legs. Normal speech. PSYCHIATRIC: Appropriate mood and affect; insight and judgment normal. A/P Problem List: (1) Sepsis ICD Code: A41.9 - Sepsis, unspecified organism (2) Diverticulitis ICD Code: K57.92 - Diverticulitis of intestine, part unspecified, without perforation or abscess without bleeding Status: Acute (3) Intractable pain ICD Code: R52 - Pain, unspecified (4) HTN (hypertension) ICD Code: I10 - Essential (primary) hypertension (5) DM (diabetes mellitus) ICD Code: E11.9 - Type 2 diabetes mellitus without complications Assessment and Plan 52-year-old -[place] female with a history of diabetes, hypertension, and hyperlipidemia admitted overnight with acute diverticulitis. Diverticulitis Leukocytosis and left lower quadrant pain consistent with findings on CT abdomen showing evidence of acute diverticulitis with no abscess or perforation Received IV Cipro and Flagyl in the ED but was changed to Zosyn on admission Continue Zosyn Antiemetics and pain control IV hydration Clear liquid diet, advance as tolerated Monitor for GI bleeding, H&H WNL Will need colonoscopy as outpatient Sepsis On admission patient tachycardic with leukocytosis and evidence of infection ( diverticulitis) Lactic acid within normal limit No blood cultures done Continue antibiotics as above Hypertension BPs elevated but could possibly be secondary to pain Continue home meds for now but may have to adjust if BPs continued to be elevated despite pain control Hydralazine as needed Diabetes mellitus [address] Hold [address] metformin and place on sliding scale insulin with Accu-Cheks per protocol Hyperlipidemia Continue home statin DVT prophylaxis: Lovenox Improved, tolerates diet. DC today Jess Otto MD Mar 13, 2018 08:38
[2018-03-13] MEDS ORDERED: CIPR500T2 PO (08:47)
[2018-03-13] MEDS ORDERED: METR-1 PO (08:47)
--- NOTE | 2018-03-13 08:48 | HHI.DS ---
Discharge Summary Admission Date Mar 12, 2018 at 00:13 Discharge Date: Mar 13, 2018 Admitting Diagnosis diverticulitis; sepsis (1) Sepsis ICD Code: A41.9 - Sepsis, unspecified organism (2) Diverticulitis ICD Code: K57.92 - Diverticulitis of intestine, part unspecified, without perforation or abscess without bleeding Status: Acute (3) Intractable pain ICD Code: R52 - Pain, unspecified (4) HTN (hypertension) ICD Code: I10 - Essential (primary) hypertension (5) DM (diabetes mellitus) ICD Code: E11.9 - Type 2 diabetes mellitus without complications Procedures none Brief History - From Admission This is a 52-year-old female with a PMH of HTN, Hyperlipidemia, h/o CVA and DM who presented to ER with complaints of abdominal pain x2 days. Notes pain located mostly in LLQ. Pain is intermittent, cramping, severe, 10/10, non- radiating, w/ associated nausea/vomiting. Denies fever or chills. On arrival, BP 171/82, HR 107, O2 sat 99% on RA, Afebrile. WBC 15.5. Chemistry unremarkable except for GFR 82. Lactic Acid 1.2. UA with small LE, mild bacteriuria. CT Abdomen/Pelvis focal wall thickening and pericolic inflammatory changes involving distal descending colon consistent with acute diverticulitis. CXR with streaking left lung base consistent with atelectasis. S/p Cipro/Flagyl in ER. CBC/BMP: 03/11/18 2100 03/11/18 2100 Significant Findings Laboratory Tests Test 03/11/18 21:00 03/11/18 21:05 White Blood Count 15.5 TH/MM3 (4.0-11.0) Neutrophils (%) (Auto) 72.5 % (16.0-70.0) Neutrophils # (Auto) 11.2 TH/MM3 (1.8-7.7) Monocytes # (Auto) 1.1 TH/MM3 (0-0.9) Random Glucose 73 MG/DL (74-106) Total Protein 9.1 GM/DL (6.4-8.2) Estimat Glomerular Filtration Rate 82 ML/MIN (>89) Lipase 48 U/L (73-393) Urine Ketones 80 mg/dL (NEG) Urine Leukocyte Esterase SMALL (NEG) Urine Mucus FEW /lpf (OCC) Imaging Last Impressions Chest X-Ray 03/11/182044 Signed Impressions: CONCLUSION: Streakiness within left lung base consistent with atelectasis or minimal infilt rate. Clinical correlation is recommended. Abdomen/Pelvis CT 03/11/182044 Signed Impressions: CONCLUSION: 1. Focal wall thickening and pericolic inflammatory changes involving the dist al descending colon consistent with probable acute diverticulitis. No pericolic abscess is noted. 2. Enlarged fibroid uterus. 3. 11 mm left renal cyst. 4. Bibasilar atelectatic changes. PE at Discharge GENERAL: Pleasant 52 yo -[place] female resting in bed in [facility]. CARDIOVASCULAR: Regular rate and rhythm. RESPIRATORY: No accessory muscle use. Clear to auscultation. Breath sounds equal bilaterally. GASTROINTESTINAL: Abdomen soft, non-tender, nondistended. Hepatic and splenic margins not palpable. MUSCULOSKELETAL: Extremities without clubbing, cyanosis, or edema. No obvious deformities. NEUROLOGICAL: Awake and alert. No obvious cranial nerve deficits. Motor grossly within normal limits. Five out of 5 muscle strength in the arms and legs. Normal speech. PSYCHIATRIC: Appropriate mood and affect; insight and judgment normal. Hospital Course 52-year-old -[place] female with a history of diabetes, hypertension, and hyperlipidemia admitted overnight with acute diverticulitis. Diverticulitis Leukocytosis and left lower quadrant pain consistent with findings on CT abdomen showing evidence of acute diverticulitis with no abscess or perforation Received IV Cipro and Flagyl in the ED but was changed to Zosyn on admission. Will give cipro and flagyl po at [place] Received Zosyn while in the hospital Antiemetics and pain control Received IV hydration, encourage PO Diet advanced and patient tolerated well diet Monitor for GI bleeding, H&H WNL Will need colonoscopy as outpatient Sepsis. Resolved. On admission patient tachycardic with leukocytosis and evidence of infection ( diverticulitis). Resolved. Lactic acid within normal limit No blood cultures done Continue antibiotics as above Hypertension BPs elevated but could possibly be secondary to pain Continue home meds for now but may have to adjust if BPs continued to be elevated despite pain control Hydralazine as needed Diabetes mellitus 2 Hold [address] metformin and place on sliding scale insulin with Accu-Cheks per protocol Hyperlipidemia Continue home statin DVT prophylaxis: Lovenox Improved, tolerates diet. DC home in stable condition to f/u as OP with PCP and consultants. Pt Condition on Discharge: Stable Discharge Disposition: Discharge Home Discharge Time: > 30 minutes Discharge Instructions DIET: Follow Instructions for: As Tolerated, No Restrictions Activities you can perform: Regular-No Restrictions Follow up Referrals: Gastroenterology - 2 Weeks [facility] in network. PCP Follow-up - 2-3 Days with [facility] Informed patient Warren offers same day appointments and to call the day of she would like to be seen. Office opens at 8:00am. Provided the patient with office address and telephone number. New Medications: Ciprofloxacin (Ciprofloxacin) 500 Mg Tab 500 MG PO BID for Infection for 10 Days, #20 TAB 0 Refills Metronidazole (Flagyl) 500 Mg Tab 500 MG PO TID for Infection for 10 Days, TAB 0 Refills Continued Medications: Atorvastatin (Atorvastatin) 40 Mg Tab 40 MG PO HS for Cholesterol Management, #30 TAB 0 Refills Lisinopril-Hctz (Lisinopril-Hctz) 20-25 Mg Tab 1 TAB PO DAILY for Blood Pressure Management, #30 TAB 0 Refills Metformin (Metformin) 500 Mg Tab 500 MG PO DAILY for Blood Sugar Management, #30 TAB 0 Refills With a meal Jess Otto MD Mar 13, 2018 08:48
[2018-03-13] MEDS: ENOXAPARIN SODIUM 40 MG/0.4 ML SYRINGE SQ SCH (09:02)
[2018-03-13] MEDS: DOCUSATE SODIUM 50 MG/SENNA 8.6 MG TAB PO SCH (09:02)
[2018-03-13 11:56] LABS: AUTOMATED NEUTROPHIL # 5.9 TH/MM3 (1.8-7.7); BASOPHIL % 0.5 % (0.0-2.0); EOSINOPHIL # 0.2 TH/MM3 (0-0.4); EOSINOPHIL % 2.2 % (0.0-4.0); HEMATOCRIT 33.9 % (35.0-46.0); HEMOGLOBIN 11.4 GM/DL (11.6-15.3); LYMPH % 21.5 % (9.0-44.0); LYMPHOCYTE # 1.8 TH/MM3 (1.0-4.8); MEAN CELL VOLUME 87.3 FL (80.0-100.0); MEAN CORPUSCULAR HEMOGLOBIN 29.3 PG (27.0-34.0); MEAN CORPUSCULAR HGB CONC 33.6 % (32.0-36.0); MEAN PLATELET VOLUME 8.4 FL (7.0-11.0); MONO % 5.8 % (0.0-8.0); MONOCYTE # 0.5 TH/MM3 (0-0.9); PLATELET COUNT 227 TH/MM3 (150-450); RED BLOOD COUNT 3.88 MIL/MM3 (4.00-5.30); RED CELL DISTRIBUTION WIDTH 13.7 % (11.6-17.2); WHITE BLOOD COUNT 8.5 TH/MM3 (4.0-11.0)
[2018-03-13 12:09] LABS: ALBUMIN 2.9 GM/DL (3.4-5.0); ALKALINE PHOSPHATASE 82 U/L (45-117); ALT (GPT) 19 U/L (10-53); AST (GOT) 20 U/L (15-37); BICARBONATE 25.7 MEQ/L (21.0-32.0); BLOOD UREA NITROGEN 4 MG/DL (7-18); CALCIUM 8.8 MG/DL (8.5-10.1); CHLORIDE 105 MEQ/L (98-107); CREATININE 0.84 MG/DL (0.50-1.00); GLOMERULAR FILTRATION RATE 86 ML/MIN (>89); GLUCOSE,RANDOM 111 MG/DL (74-106); SODIUM (NA) 142 MEQ/L (136-145); TOTAL BILIRUBIN ADULT 0.3 MG/DL (0.2-1.0); TOTAL PROTEIN 7.7 GM/DL (6.4-8.2)
== END 2018-03-13 11:25 | disposition home or self-care (01) | DRG 872 ==
LOC: NEPC 19:19 → NEDH 03-12 00:13 → HCIS 03-12 01:15 → N07B 03-12 14:10
PROVIDERS: ADMIT Hospitalist; ATTEND Hospitalist
DX: A41.9 Sepsis, unspecified organism (principal); K57.32 Diverticulitis of large intestine without perforation or abscess without bleeding; I10 Essential (primary) hypertension; E11.9 Type 2 diabetes mellitus without complications; Z79.84 Long term (current) use of oral hypoglycemic drugs; Z86.73 Personal history of transient ischemic attack (TIA), and cerebral infarction without residual deficits; E78.5 Hyperlipidemia, unspecified; D25.9 Leiomyoma of uterus, unspecified; N28.1 Cyst of kidney, acquired
CPT/HCPCS: 71045; 74177; 80053; 81001; 82948; 83605; 83690; 85025; 96361; 96374; 96375; 96376; J0744; J1650; J1815; J2270; J2543; J2765; J7030; Q9967

== ENCOUNTER 2018-03-14 20:44 | Emergency (ER) | payer SELFPAY ==
[~2018-03-14 20:44] MED LIST changes: +ATOR40TA16 PO; -ATOR40TA49 PO; +CIPR500T2 PO; -LISI-587 PO; +LISI20TA3 PO; +METF500T PO; +METR-1 PO
== END 2018-03-14 21:50 | disposition left against medical advice (07) ==
LOC: NED 20:44
DX: R19.8 Other specified symptoms and signs involving the digestive system and abdomen (principal)
CPT/HCPCS: 99281

== ENCOUNTER 2018-04-13 21:21 | Inpatient (IN) ==
[2018-04-13 23:14] LABS: Baso # (Auto) 0.1 th/mm3 (0.0-0.2); Baso % (Auto) 0.8 % (0.0-2.0); Eos # (Auto) 0.2 th/mm3 (0.0-0.4); Eos % (Auto) 2.5 % (0.0-4.0); Hematocrit 39.7 % (35.0-46.0); Hemoglobin 13.1 gm/dL (11.6-15.3); Lymph # (Auto) 3.3 th/mm3 (1.0-4.8); Lymph % (Auto) 44.4 % (9.0-44.0); Mean Corpuscular HGB Conc 33.1 % (32.0-36.0); Mean Corpuscular Hemoglobin 28.6 pg (27.0-34.0); Mean Corpuscular Volume 86.3 fL (80.0-100.0); Mean Platelet Volume 8.4 fL (7.0-11.0); Mono # (Auto) 0.3 th/mm3 (0.0-0.9); Mono % (Auto) 4.3 % (0.0-8.0); Neut # (Auto) 3.5 th/mm3 (1.8-7.7); Platelet Count 294 th/mm3 (150-450); Red Cell Distribution Width 14.2 % (11.6-17.2); White Blood Count 7.4 th/mm3 (4.0-11.0)
[2018-04-13] MEDS ORDERED: Sod Chloride 0.9% Inj 1,000 ML IV.CONT SCH (23:15)
[2018-04-13] MEDS: niCARdipine Inj 25 MG in Sodium Chlor 0.9% Inj 240 ML IV.CONT PRN (23:21)
[2018-04-13 23:25] LABS: Activated Partial Thrombo Time 28.8 sec (24.3-30.1)
--- NOTE | 2018-04-13 23:28 | CT ---
EXAM DATE: 04/13/2018 11:16 PM EDT AGE/SEX: 52 years / Female INDICATIONS: Stroke Alert, left sided weakness and numbness. CLINICAL DATA: This is the patient's initial encounter. Patient reports that signs and symptoms have been present for 1 day and indicates a pain score of 0/10. MEDICAL/SURGICAL HISTORY: None. None. RADIATION DOSE: 43.33 CTDI (mGy) COMPARISON: [facility] [place]/O [place], 12/12/2011. . TECHNIQUE: CT of the head without contrast. Using automated exposure control and adjustment of the mA and/or kV according to patient size, radiation dose was kept as low as reasonably achievable to ob tain optimal diagnostic quality images. DICOM format image data is available electronically for revi ew and comparison. FINDINGS: There is no intracranial hemorrhage or hematoma. No mass, mass effect or midline shift. Chronic benig n calcification of the falx and tentorium again noted. Skull is intact. CONCLUSION: No acute intracranial abnormality. Report called to Dr. Blake at 11:20 PM. Electronically signed by: Lee Real MD 04/13/2018 11:26 PM EDT
--- NOTE | 2018-04-13 23:30 | XR ---
EXAM DATE: 04/13/2018 11:26 PM EDT AGE/SEX: 52 years / Female INDICATIONS: Stroke alert. CLINICAL DATA: This is the patient's initial encounter. Patient reports that signs and symptoms have been present for 1 day and indicates a pain score of 0/10. MEDICAL/SURGICAL HISTORY: . Hypercholesterolemia. Hypertension. Diabetes. Cerebrovascular acci dent. Palpitations. . section. Tubal ligation. Wrist surgery. COMPARISON: No prior exams available for comparison. FINDINGS: A single AP view of the chest demonstrates the lungs to be symmetrically aerated without evidence of mass, infiltrate or effusion. The cardiomediastinal contours are unremarkable. Osseous structures a re grossly intact. CONCLUSION: No evidence of acute cardiopulmonary disease. Electronically signed by: Lee Real MD 04/13/2018 11:29 PM EDT
--- NOTE | 2018-04-13 23:30 | ED ---
HPI General Chief Complaint: Weakness Stated Complaint: High Blood Pressure Time Seen by Provider: 04/13/18 22:56 History of Present Illness HPI Narrative: The patient is a 52-year-old female. She arrives to the ER by private vehicle. She reports going to sleep around 7:00 and then waking up around 8:00 with weakness in the left leg. She came to the ED with concern for having elevated blood pressure potentially a stroke. No headache. No chest pain or shortness of breath. She reports noncompliance with lisinopril for a couple weeks. She also had symptoms similar to this a couple weeks ago however waited in the ER for about 5 hours or so in the left before evaluation. Onset (ago): hour(s) (4) Timing confirmed by: other (Deficit was not witnessed) Location: left leg History of same: Yes Severity: mild Quality: weak Relieving factors: none Exacerbating factors: none On Anticoagulants: No Treatments Prior to Arrival: none Related Data Allergies Allergy/AdvReac Type Severity Reaction Status Date / Time No Known Allergies Allergy Unverified 04/09/18 22:32 Review of Systems ROS Unobtainable other (Acuity) PMFSH Social History Social History Substance History: No History of Abuse Second Hand Smoke Exposure: No Smoking Status: Never smoker How Often Do You Have a Drink Containing Alcohol: Never Recent Travel in [facility] within the Last 8 Weeks: No Recent Out of Country Travel within the Last 8 Weeks: No Immunization History Tetanus Immunization: <5 Years Exam Narrative Exam Narrative: GENERAL: 52-year-old female pleasant well-nourished well- developed very anxious SKIN: Focused skin assessment warm/dry. HEAD: Atraumatic. Normocephalic. EYES: Pupils equal and round. No scleral icterus. No injection or drainage. ENT: No nasal bleeding or discharge. Mucous membranes pink and moist. NECK: Trachea midline. No JVD. CARDIOVASCULAR: Regular rate and rhythm. No murmur appreciated. RESPIRATORY: No accessory muscle use. Clear to auscultation. Breath sounds equal bilaterally. GASTROINTESTINAL: Abdomen soft, non-tender, nondistended. Hepatic and splenic margins not palpable. MUSCULOSKELETAL: No obvious deformities. No clubbing. No cyanosis. No edema. NEUROLOGICAL: On pronator drift assessment the right hand was slightly lower than the left hand. There is no significant drift. Patient was unable to smile. Patient was unable to elevate the eyebrows. Hip flexion on left decreased compared to right. PSYCHIATRIC: Appropriate mood and affect; insight and judgment normal. Course Initial Documented Vital Signs Temperature 98.5 F 04/13/18 22:44 Pulse Rate 74 04/13/18 22:44 Respiratory Rate 16 04/13/18 22:44 Blood Pressure 253/115 H 04/13/18 22:44 Pulse Oximetry 100 04/13/18 22:44 Last Documented Vital Signs Temperature 99.1 F 04/14/18 06:00 Pulse Rate 78 04/14/18 06:00 Respiratory Rate 15 04/14/18 06:00 Blood Pressure 127/72 04/14/18 06:00 Pulse Oximetry 99 04/14/18 06:00 Critical Care Time Critical Care Time: Yes Total Critical Care Time: 40 Attestation: Aggregate critical care time was 45 minutes. Time to perform other separately billable procedures was not included in the critical care time. My time did not include minutes spent treating any other patients simultaneously or on activities that did not directly contribute to the patient's treatment. The services I provided to this patient were to treat and/or prevent clinically significant deterioration that could result in: Permanent deficit or inappropriate administration of TPA I provided critical care services requiring my management, as noted below: Chart data review, documentation time, medication orders and management, vital sign assessments/reviewing monitor data, ordering and reviewing lab tests, ordering and interpreting/reviewing x-rays and diagnostic studies, care of the patient and discussion of the patient with the admitting physicians. NIH Stroke Scale NIHSS Time Completed NIHSS Time Completed: 05:00 NIH Stroke Scale Level of Consciousness: 0-Alert Orientation Questions: 0-Answers both correct Responds to Commands: 0-Both tasks correct Gaze Eye Movement: 0-Horizontal movement WNL Visual Aguiar: 0-No visual field defect Facial Movement: 0-Normal Motor Functions Arm LEFT: 0-No drift Motor Functions Arm RIGHT: 0-No drift Motor Functions Leg LEFT: 1-Drift before 5 seconds Motor Functions Leg RIGHT: 0-No drift Limb Ataxia: 0-No ataxia Sensory Loss: 0-No sensory loss Best Language: 0-Normal Articulation: 0-Normal Extinction or Inattention Sensory: 0-Absent Total: 1 Quality Measure Queries Stroke Symptom Onset Unknown: No Thrombolytic Contraindications: Uncontrolled HTN at event Comment Thrombolytic Contraindications: Patient symptoms resolved when she returned from the CT scanner. She also had a blood pressure of approximately 250 upon arrival here. We started on nicardipine drip and the blood pressure dropped to about 190/100. At that point the patient was able to participate fully with the exam demonstrate no focal cranial nerve deficit. Motor function in the upper and lower extremities at that time was also normal. The patient reported in greater detail the compliance with lisinopril over the past few weeks. She also reported that she drove here from [place] because her daughter was going to meet her here. Medical Decision Making MDM Narrative Medical decision making narrative: Case discussed with Dr. Castro for the hospitalist service. Case discussed with Dr. King for the neurologist service. The patient will be admitted for investigation and possible stroke. Most likely diagnosis considered to be hypertensive encephalopathy. Lab Data Lab results reviewed: Yes I reviewed the patient's lab results. Result diagrams: 04/13/18 23:05 04/13/18 23:05 Lab Results 04/13/18 04/13/18 04/13/18 Range/Units 22:56 23:05 23:05 WBC 7.4 (4.0-11.0) th/mm3 RBC 4.60 (4.00-5.30) mil/mm3 Hgb 13.1 (11.6-15.3) gm/dL POC Hgb (Calc) 13.3 (11.6-15.3) g/dL Hct 39.7 (35.0-46.0) % POC Hct 39.0 (35-46.0) % MCV 86.3 (80.0-100.0) fL MCH 28.6 (27.0-34.0) pg MCHC 33.1 (32.0-36.0) % RDW 14.2 (11.6-17.2) % Plt Count 294 (150-450) th/mm3 MPV 8.4 (7.0-11.0) fL Neut % (Auto) 48.0 (16.0-70.0) % Lymph % (Auto) 44.4 H (9.0-44.0) % Mills % (Auto) 4.3 (0.0-8.0) % Eos % (Auto) 2.5 (0.0-4.0) % Baso % (Auto) 0.8 (0.0-2.0) % Neut # (Auto) 3.5 (1.8-7.7) th/mm3 Lymph # (Auto) 3.3 (1.0-4.8) th/mm3 Mills # (Auto) 0.3 (0.0-0.9) th/mm3 Eos # (Auto) 0.2 (0.0-0.4) th/mm3 Baso # (Auto) 0.1 (0.0-0.2) th/mm3 WBC Differential . Differential Comment Auto diff final PT (9.8-11.6) sec INR Ratio APTT (24.3-30.1) sec Fibrinogen (227-377) mg/dL POC Sodium 139 (137-144) mmol/L Sodium 141 (136-145) meq/L POC Potassium 4.9 (3.6-5.0) mmol/L Potassium 4.8 (3.5-5.1) meq/L POC Chloride 105 (102-111) mmol/L Chloride 107 (98-107) meq/L Carbon Dioxide 25.9 (21.0-32.0) meq/L Anion Gap 8 (5-15) meq/L POC BUN 13 (5-21) mg/dL BUN 11 (7-18) mg/dL Creatinine 0.76 (0.50-1.00) mg/dL POC Creatinine 0.6 (0.6-1.3) mg/dL Estimated GFR Greater than 89 (>89) mL/min POC Glucose 103 101 (68-110) mg/dl Random Glucose 99 (74-106) mg/dL Calcium 9.3 (8.5-10.1) mg/dL Total Creatine Kinase 333 H (26-192) U/L CK-MB (CK-2) 1.9 (0.5-3.6) ng/mL CK-MB (CK-2) % 0.6 (0.0-4.0) % Troponin I Less than 0.02 L (0.02-0.05) ng/mL Urine Color (Yellw/Straw) Urine Clarity (Clear) Urine pH (5.0-8.5) Ur Specific [place] (1.002-1.035) Urine Protein (Neg-Trace) mg/dL Urine Glucose (UA) (Negative) mg/dL Urine Ketones (Negative) mg/dL Urine Occult Blood (Negative) Urine Nitrate (Negative) Urine Bilirubin (Negative) Urine Urobilinogen (Less than 2) mg/dL Ur Leukocyte Esterase (Negative) Urine WBC (0-5) /hpf Ur Squamous Epith Cells (0-5) /hpf Urine Mucus (Occasional) /lpf Micro UA Comment Urine Culture Comments Nasal Screen MRSA (PCR) (Negative) Blood Type Blood Type Recheck Antibody Screen 04/13/18 04/13/18 04/13/18 Range/Units 23:05 23:05 23:05 WBC (4.0-11.0) th/mm3 RBC (4.00-5.30) mil/mm3 Hgb (11.6-15.3) gm/dL POC Hgb (Calc) (11.6-15.3) g/dL Hct (35.0-46.0) % POC Hct (35-46.0) % MCV (80.0-100.0) fL MCH (27.0-34.0) pg MCHC (32.0-36.0) % RDW (11.6-17.2) % Plt Count (150-450) th/mm3 MPV (7.0-11.0) fL Neut % (Auto) (16.0-70.0) % Lymph % (Auto) (9.0-44.0) % Mills % (Auto) (0.0-8.0) % Eos % (Auto) (0.0-4.0) % Baso % (Auto) (0.0-2.0) % Neut # (Auto) (1.8-7.7) th/mm3 Lymph # (Auto) (1.0-4.8) th/mm3 Mills # (Auto) (0.0-0.9) th/mm3 Eos # (Auto) (0.0-0.4) th/mm3 Baso # (Auto) (0.0-0.2) th/mm3 WBC Differential Differential Comment PT 10.0 (9.8-11.6) sec INR 1.0 Ratio APTT 28.8 (24.3-30.1) sec Fibrinogen 368 (227-377) mg/dL POC Sodium (137-144) mmol/L Sodium (136-145) meq/L POC Potassium (3.6-5.0) mmol/L Potassium (3.5-5.1) meq/L POC Chloride (102-111) mmol/L Chloride (98-107) meq/L Carbon Dioxide (21.0-32.0) meq/L Anion Gap (5-15) meq/L POC BUN (5-21) mg/dL BUN (7-18) mg/dL Creatinine (0.50-1.00) mg/dL POC Creatinine (0.6-1.3) mg/dL Estimated GFR (>89) mL/min POC Glucose (68-110) mg/dl Random Glucose (74-106) mg/dL Calcium (8.5-10.1) mg/dL Total Creatine Kinase Cancelled (26-192) U/L CK-MB (CK-2) (0.5-3.6) ng/mL CK-MB (CK-2) % (0.0-4.0) % Troponin I Cancelled (0.02-0.05) ng/mL Urine Color (Yellw/Straw) Urine Clarity (Clear) Urine pH (5.0-8.5) Ur Specific [place] (1.002-1.035) Urine Protein (Neg-Trace) mg/dL Urine Glucose (UA) (Negative) mg/dL Urine Ketones (Negative) mg/dL Urine Occult Blood (Negative) Urine Nitrate (Negative) Urine Bilirubin (Negative) Urine Urobilinogen (Less than 2) mg/dL Ur Leukocyte Esterase (Negative) Urine WBC (0-5) /hpf Ur Squamous Epith Cells (0-5) /hpf Urine Mucus (Occasional) /lpf Micro UA Comment Urine Culture Comments Nasal Screen MRSA (PCR) (Negative) Blood Type O Positive Blood Type Recheck Required Antibody Screen Negative 04/14/18 04/14/18 Range/Units 00:20 01:53 WBC (4.0-11.0) th/mm3 RBC (4.00-5.30) mil/mm3 Hgb (11.6-15.3) gm/dL POC Hgb (Calc) (11.6-15.3) g/dL Hct (35.0-46.0) % POC Hct (35-46.0) % MCV (80.0-100.0) fL MCH (27.0-34.0) pg MCHC (32.0-36.0) % RDW (11.6-17.2) % Plt Count (150-450) th/mm3 MPV (7.0-11.0) fL Neut % (Auto) (16.0-70.0) % Lymph % (Auto) (9.0-44.0) % Mills % (Auto) (0.0-8.0) % Eos % (Auto) (0.0-4.0) % Baso % (Auto) (0.0-2.0) % Neut # (Auto) (1.8-7.7) th/mm3 Lymph # (Auto) (1.0-4.8) th/mm3 Mills # (Auto) (0.0-0.9) th/mm3 Eos # (Auto) (0.0-0.4) th/mm3 Baso # (Auto) (0.0-0.2) th/mm3 WBC Differential Differential Comment PT (9.8-11.6) sec INR Ratio APTT (24.3-30.1) sec Fibrinogen (227-377) mg/dL POC Sodium (137-144) mmol/L Sodium (136-145) meq/L POC Potassium (3.6-5.0) mmol/L Potassium (3.5-5.1) meq/L POC Chloride (102-111) mmol/L Chloride (98-107) meq/L Carbon Dioxide (21.0-32.0) meq/L Anion Gap (5-15) meq/L POC BUN (5-21) mg/dL BUN (7-18) mg/dL Creatinine (0.50-1.00) mg/dL POC Creatinine (0.6-1.3) mg/dL Estimated GFR (>89) mL/min POC Glucose (68-110) mg/dl Random Glucose (74-106) mg/dL Calcium (8.5-10.1) mg/dL Total Creatine Kinase (26-192) U/L CK-MB (CK-2) (0.5-3.6) ng/mL CK-MB (CK-2) % (0.0-4.0) % Troponin I (0.02-0.05) ng/mL Urine Color Colorless (Yellw/Straw) Urine Clarity Clear (Clear) Urine pH 6.0 (5.0-8.5) Ur Specific [place] 1.013 (1.002-1.035) Urine Protein Negative (Neg-Trace) mg/dL Urine Glucose (UA) Negative (Negative) mg/dL Urine Ketones Negative (Negative) mg/dL Urine Occult Blood Negative (Negative) Urine Nitrate Negative (Negative) Urine Bilirubin Negative (Negative) Urine Urobilinogen Less than 2 (Less than 2) mg/dL Ur Leukocyte Esterase Negative (Negative) Urine WBC 1 (0-5) /hpf Ur Squamous Epith Cells 2 (0-5) /hpf Urine Mucus Few H (Occasional) /lpf Micro UA Comment Culture not ind Urine Culture Comments Culture not ind Nasal Screen MRSA (PCR) Not detected (Negative) Blood Type Blood Type Recheck Antibody Screen Imaging Data Radiologist's impression: ITS Impressions Chest X-Ray 04/13/18 23:09 CONCLUSION: No evidence of acute cardiopulmonary disease. Head CT 04/13/18 23:09 CONCLUSION: No acute intracranial abnormality. Report called to Dr. Blake at 11:20 PM. Head CTA 04/13/18 23:09 CONCLUSION: 1. Intracranial arteries are within normal limits. Neck CTA 04/13/18 23:09 CONCLUSION: Tortuous and minimally atherosclerotic bilateral carotid arteries. No acute abnormalities are demonstrated. Discharge Plan Discharge Disposition Patient Disposition: 30 Still Patient Physicians Team ED Provider: Yehuda Blake Primary Care Provider: Primary Care Dixie Storm Attending Provider: Jann Valdez Other Providers: Ruddy King Discharge Interventions Interventions: ED Discharge Assessment Last Done: 04/14/18 01:38 Vital Signs Last Done: 04/13/18 23:15 Status ED Status: Left Department Discharge Information Discharge Date/Time: 04/14/18 01:38
[2018-04-13 23:37] LABS: Anion Gap 8 meq/L (5-15); Blood Urea Nitrogen 11 mg/dL (7-18); Calcium 9.3 mg/dL (8.5-10.1); Carbon Dioxide 25.9 meq/L (21.0-32.0); Chloride 107 meq/L (98-107); Creatine Kinase 333 U/L (26-192); Glomerular Filtration Rate Greater Than 89 mL/min (>89); Glucose,Random 99 mg/dL (74-106); Potassium 4.8 meq/L (3.5-5.1); Sodium 141 meq/L (136-145)
--- NOTE | 2018-04-13 23:41 | CT ---
EXAM DATE: 04/13/2018 11:32 PM EDT AGE/SEX: 52 years / Female INDICATIONS: Stroke Alert. Left sided weakness and numbness. CLINICAL DATA: This is the patient's initial encounter. Patient reports that signs and symptoms have been present for 1 day and indicates a pain score of 0/10. MEDICAL/SURGICAL HISTORY: None. None. RADIATION DOSE: 28.49 CTDI (mGy) COMPARISON: No prior exams available for comparison. TECHNIQUE: Volumetric scanning was performed using a multi-row detector CT scanner during bolus infu anshul of 50 ml Visipaque 320 (iodixanol) nonionic water-soluble contrast as a cumulative dose for mul tiple exams. The data was post processed with a variety of visualization algorithms including full volume maximum intensity projection, multi-planar sliding thin slab reformation, curved planar reform ation, and surface rendering techniques. Using automated exposure control and adjustment of the mA a nd/or kV according to patient size, radiation dose was kept as low as reasonably achievable to obtain optimal diagnostic quality images. DICOM format image data is available electronically for review a nd comparison. FINDINGS: There is excellent visualization of the major intracranial arteries out to the second-order branch ve ssels. There is no evidence for aneurysm, vessel truncation or stenosis, and no evidence for vascula r malformation. CONCLUSION: 1. Intracranial arteries are within normal limits. Electronically signed by: Lee Real MD 04/13/2018 11:40 PM EDT
[2018-04-13 23:49] LABS: CKMB Percent 0.6 % (0.0-4.0); Creatine Kinase MB 1.9 ng/mL (0.5-3.6)
--- NOTE | 2018-04-14 00:01 | CT ---
EXAM DATE: 04/13/2018 11:53 PM EDT AGE/SEX: 52 years / Female INDICATIONS: Stroke alert, left side weakness. CLINICAL DATA: This is the patient's initial encounter. Patient reports that signs and symptoms have been present for 1 day and indicates a pain score of 0/10. MEDICAL/SURGICAL HISTORY: None. None. RADIATION DOSE: 28.49 CTDI (mGy) ; Combined studies COMPARISON: No prior exams available for comparison. TECHNIQUE: Volumetric scanning was performed using a multirow detector CT scanner during bolus infus ion of 50 ml Visipaque 320 (iodixanol) nonionic water-soluble contrast as a cumulative dose for mult iple exams. The data was postprocessed with a variety of visualization algorithms including full-vo lume maximum intensity projection, multiplanar sliding thin-slab reformation, curved-planar reformati on, and surface-rendering techniques. Using automated exposure control and adjustment of the mA and/ or kV according to patient size, radiation dose was kept as low as reasonably achievable to obtain op timal diagnostic quality images. DICOM format image data is available electronically for review and comparison. Elevated flow velocities and ICA/CCA ratios have been found to correlate with increased degrees of ve ssel stenosis, calculated as percentage of diameter relative to a normal segment of distal ICA/CCA. FINDINGS: Arch vessel origins are within normal limits. There is tortuosity of the bilateral common and interna l carotid arteries. Trace calcified atherosclerotic plaque seen at both bifurcations without any asso ciated narrowing. No evidence of carotid dissection. Bilateral vertebral arteries are widely patent. The right vertebral artery is mildly dominant. CONCLUSION: Tortuous and minimally atherosclerotic bilateral carotid arteries. No acute abnormalities are demonstrated. Electronically signed by: Lee Real MD 04/14/2018 12:00 AM EDT
[2018-04-14] MEDS ORDERED: Bisacodyl 10 MG Supp RECTAL PRN (00:51)
[2018-04-14 01:04] LABS: Bilirubin,Urine Negative (Negative); Clarity,Urine Clear (Clear); Color,Urine Colorless (Yellw/Straw); Glucose,Urine (UA) Negative (Negative); Leukocyte Esterase,Urine Negative (Negative); Mucus,Urine Few /lpf (Occasional); Nitrite,Urine Negative (Negative); Specific Gravity,Urine 1.013 (1.002-1.035); Squamous Epithelial Cell,Urine 2 /hpf (0-5)
[2018-04-14] MEDS: niCARdipine Inj 25 MG in Sodium Chlor 0.9% Inj 240 ML IV.CONT PRN ×2 (03:38→09:28)
[2018-04-14] MEDS: Chlorhexidine Gluconate 2% 1 Pack (2 Cloths) TOPICAL SCH (03:39)
[2018-04-14] MEDS: Sod Chloride 0.9% Inj 1,000 ML IV.CONT SCH (03:39)
[2018-04-14] MEDS: Acetaminophen 325 MG Tablet PO PRN (03:59)
[2018-04-14] MEDS ORDERED: Chlorhexidine Gluconate 2% 1 Pack (2 Cloths) TOPICAL PRN ×2 (04:00)
[2018-04-14] MEDS ORDERED: Chlorhexidine Gluconate 2% 1 Pack (2 Cloths) TOPICAL SCH (04:00)
[2018-04-14 07:17] LABS: Amphetamine Screen,Urine Neg (Neg); Barbiturate Screen,Urine Neg (Neg); Cannabinoid Screen,Urine Neg (Neg); Cocaine Screen,Urine Neg (Neg); Opiate Screen,Urine Neg (Neg)
--- NOTE | 2018-04-14 07:41 | ECG ---
Date Performed: 04/13/2018 Time Performed: 22:58:06 PTAGE: 52 years EKG: Sinus rhythm WITH SINUS ARRHYTHMIA POSSIBLE LEFT ATRIAL ENLARGEMENT INFERIOR MYOCARDIAL INFARCTION Anteroseptal m yocardial infarction ABNORMAL ECG Compared to prior electrocardiogram, Criteria for inferior and ante roseptal MIs are more prominent. DOCTOR: Daniel Walsh Interpretating Date/Time 04/14/2018 07:39:27
[2018-04-14] MEDS ORDERED: Dextrose 50% in Water 50 ML Vial IV.PUSH PRN (12:57)
[2018-04-14] MEDS ORDERED: Labetalol HCl Inj 100 MG/20 ML Vial IV.PUSH PRN (12:57)
[2018-04-14] MEDS ORDERED: Aspirin 325 MG Tablet PO SCH (13:00)
--- NOTE | 2018-04-14 13:08 | P.HPIM ---
History of Present Illness Primary Care Physician: No Primary Care Physician Chief Complaint: Left Sided weakness History of Present Illness: This is a 52-year-old female with past medical history of hypertension, hyperlipidemia and diabetes mellitus type 2 who presents to [facility] by herself complaining of left facial, left upper extremity and left lower external weakness. The patient states that she was in her usual state yesterday and went to sleep around 7 AM. She states that she woke up today feeling very sweaty, having a headache and also noticed that she had left-sided weakness including the face, left upper extremity and left lower extremity as well as left shoulder pain. The patient denies any chest pain however she states she was having palpitations. The patient states that she got up and got dressed which took her a good 30 minutes because of the difficulty of getting herself dressed with the weakness. The patient then drove from [facility] to [place]. The patient was seen in the emergency department and initially had a systolic blood pressure severely elevated in the 250s. The patient states that she has not taken her home antihypertensive medication because she ran out of them. As per ED physicians documentation the patient stated that she also had similar symptoms to the ones on this presentation a couple weeks ago however she waited in the ER for about 5 hours or so on the left before evaluation. The patient states her weakness is much improved and has almost completely resolved. The patient was seen in the emergency department and was started on a new Cardizem drip secondary to severely elevated hypertension. As per ED documentation motor function in the upper and lower extremities was normal. The patient otherwise denies any nausea, vomiting , states she feels somewhat dizzy right now, denies dysuria, abdominal pain, diarrhea and also denies fevers or chills. Patient also denies any double vision, blurry vision, neck stiffness, photophobia. Inpatient Certification: I certify that the inpatient services were ordered in accordance with Medicare regulations governing the order. This includes certification that hospital inpatient services are reasonable and necessary and in the case of services not specified as inpatient-only under 42 CFR 419.22(n), that they are appropriately provided as inpatient services in accordance to with the 2-midnight benchmark under 43 CFR 412.3(e) Estimated Total Length of Stay (Days): 2 Plans for Post Hospital Care: Home Review of Systems All other systems reviewed negative except as stated [facility] - History History Provided By: Patient - Medical History Medical History: Medical History (Last Reviewed 04/14/18 @ 12:43 by Jann Valdez MD) Depression Diabetes High cholesterol Hypertension - Surgical History Surgical History: Surgical History (Last Reviewed 04/14/18 @ 12:43 by Jann Valdez MD ) H/O: Hx of tubal ligation - Family History Family History: Family History (Last Updated 04/14/18 @ 12:44 by Jann Valdez MD) Mother Stroke Father Stroke - Tobacco History Second Hand Smoke Exposure: No Tobacco Use In Past 30 Days: No Smoking Status: Never smoker - Alcohol History How Often Do You Have a Drink Containing Alcohol: Never - Substance Use History Substance History: No History of Abuse - Travel History Recent Travel in the [facility] Within the Last 8 Weeks: No Recent Travel Out of the Country Within the Last 8 Weeks: No - Immunization History Tetanus Immunization: <5 Years Medications and Allergies Active Medications: Active Medications Acetaminophen (Tylenol) 650 mg PO Q4H PRN PRN Reason: FEVER > 101 / PAIN Last Admin: 04/14/18 03:59 Dose: 650 mg Al Hydroxide/Mg Hydroxide (Milk Of Magnparis Liq) 30 ml PO Q12H PRN PRN Reason: Mild Constipation Last Admin: 04/14/18 05:06 Dose: 30 ml Bisacodyl (Dulcolax Supp) 10 mg RECTAL DAILY PRN PRN Reason: SEVERE CONSITIPATION Chlorhexidine Gluconate (Chlorhexidine 2% Cloth) 3 pack TOPICAL DAILY@0400 [facility] Stop: 04/19/18 03:59 Last Admin: 04/14/18 03:39 Dose: 3 pack Chlorhexidine Gluconate (Chlorhexidine 2% Cloth) 3 pack TOPICAL DAILY@0400 PRN PRN Reason: Extra cloth needed Stop: 04/19/18 03:59 Nicardipine HCl 25 mg/ Sodium (Chloride) 250 mls @ 50 mls/hr IV.CONT TITRATE PRN; Protocol PRN Reason: Per Protocol Last Titration: 04/14/18 10:03 Dose: 0 mg/hr, 0 mls/hr Sodium Chloride (Ns Inj) 1,000 mls @ 25 mls/hr IV.CONT .Q24H MARIJA Last Admin: 04/14/18 03:39 Dose: 25 mls/hr Lactulose (Lactulose Liq) 30 ml PO DAILY PRN PRN Reason: SEVERE CONSITIPATION Last Admin: 04/14/18 11:13 Dose: 30 ml Sennosides (Senokot) 17.2 mg PO Q12H PRN PRN Reason: Moderate Constipation Last Admin: 04/14/18 09:34 Dose: 17.2 mg Allergies Allergy/AdvReac Type Severity Reaction Status Date / Time No Known Allergies Allergy Unverified 04/09/18 22:32 Exam Vital signs: Vital Signs 04/13/18 22:44 04/13/18 22:55 04/13/18 23:15 Temperature 98.5 F 98.5 F Pulse Rate 74 79 76 Respiratory Rate 16 18 20 Blood Pressure 253/115 H 242/130 H 229/134 H Pulse Oximetry 100 100 100 04/13/18 23:45 04/13/18 23:50 04/14/18 00:00 Temperature Pulse Rate 71 88 80 Respiratory Rate 18 Blood Pressure 176/85 H 153/74 H Pulse Oximetry 100 04/14/18 00:15 04/14/18 00:17 04/14/18 00:30 Temperature Pulse Rate 96 H 76 Respiratory Rate Blood Pressure 140/87 157/73 H Pulse Oximetry 98 04/14/18 00:35 04/14/18 00:50 04/14/18 01:17 Temperature Pulse Rate 81 73 Respiratory Rate 19 Blood Pressure 151/76 H Pulse Oximetry 98 96 04/14/18 01:54 04/14/18 02:00 04/14/18 02:01 Temperature 98.7 F Pulse Rate 101 H 101 H 90 Respiratory Rate 23 26 H 24 Blood Pressure 183/97 H Pulse Oximetry 99 100 100 04/14/18 02:30 04/14/18 03:00 04/14/18 03:01 Temperature Pulse Rate 76 84 83 Respiratory Rate 11 L 29 H 24 Blood Pressure 165/90 H 147/85 H Pulse Oximetry 100 99 100 04/14/18 03:30 04/14/18 04:00 04/14/18 04:30 Temperature 98.4 F Pulse Rate 78 87 77 Respiratory Rate 17 22 14 Blood Pressure 144/83 H 144/89 H 136/82 Pulse Oximetry 100 100 99 04/14/18 05:00 04/14/18 05:09 04/14/18 05:30 Temperature Pulse Rate 82 78 75 Respiratory Rate 25 H 15 13 Blood Pressure 141/84 H 138/78 Pulse Oximetry 99 99 99 04/14/18 06:00 Temperature 99.1 F Pulse Rate 78 Respiratory Rate 15 Blood Pressure 127/72 Pulse Oximetry 99 Intake & Output 04/13/18 04/14/18 04/14/18 18:59 06:59 18:59 Intake Total 250 / 250 250 / 250 Balance 250 / 250 250 / 250 Weight 80.7 kg Intake: IV 250 / 250 250 / 250 Cardene Inj 25 MG In NS Inj 240 250 / 250 250 / 250 ML @ 5 MG/HR 50 mls/hr IV.CONT TITRATE PRN Rx#:[id number] Other: Weight On Admission 80.7 kg - Constitutional no acute distress - Routine HEENT Exam Head: Present: normocephalic, atraumatic Eye: Present: EOMI, PERRL, normal accommodation ENT: Present: mucous membranes moist - Routine Neck Exam Present: supple, trachea midline - Routine Respiratory Exam Present: CTA bilaterally - Routine Cardiovascular Exam Present: RRR, S1, S2 - Routine Abdominal Exam Present: soft, normoactive bowel sounds - Routine Extremities Exam Present: pulses intact - Routine Skin Exam Present: intact - Routine Neurological Exam Present: alert, oriented X3, CN II-XII intact, normal reflexes Results - Labs CBC & Chem 7: 04/13/18 23:05 04/13/18 23:05 Labs: Short CBC 04/13/18 Range/Units 23:05 WBC 7.4 (4.0-11.0) th/mm3 Hgb 13.1 (11.6-15.3) gm/dL Hct 39.7 (35.0-46.0) % Plt Count 294 (150-450) th/mm3 BMP 04/13/18 23:05 Sodium 141 Potassium 4.8 Chloride 107 Carbon Dioxide 25.9 BUN 11 Creatinine 0.76 Calcium 9.3 Cardiac Enzymes 04/13/18 04/13/18 Range/Units 23:05 23:05 Total Creatine Kinase 333 H Cancelled (26-192) U/L CK-MB (CK-2) 1.9 (0.5-3.6) ng/mL Troponin I Less than 0.02 L Cancelled (0.02-0.05) ng/mL Urine 04/14/18 Range/Units 00:20 Urine Color Colorless (Yellw/Straw) Urine Clarity Clear (Clear) Urine pH 6.0 (5.0-8.5) Ur Specific [place] 1.013 (1.002-1.035) Urine Protein Negative (Neg-Trace) mg/dL Urine Glucose (UA) Negative (Negative) mg/dL - Imaging Impressions Chest X-Ray 04/13/18 23:09 CONCLUSION: No evidence of acute cardiopulmonary disease. Head CT 04/13/18 23:09 CONCLUSION: No acute intracranial abnormality. Report called to Dr. Blake at 11:20 PM. Head CTA 04/13/18 23:09 CONCLUSION: 1. Intracranial arteries are within normal limits. Neck CTA 04/13/18 23:09 CONCLUSION: Tortuous and minimally atherosclerotic bilateral carotid arteries. No acute abnormalities are demonstrated. All images reviewed by me Villanueva VTE Risk Assessment Caprini VTE Risk Assessment: Moderate/High Risk (score >= 2) Caprini Risk Assessment Model: Point Value = 1 Point Value = 2 Point Value = 3 Point Value = 5 Age 41-60 Minor surgery BMI > 25 kg/m2 Swollen legs Varicose veins or History of unexplained or recurrent spontaneous Oral contraceptives or hormone replacement Sepsis (< 1 month) Serious lung disease, including pneumonia (< 1 month) Abnormal pulmonary function Acute myocardial infarction Congestive heart failure (< 1 month) History of inflammatory bowel disease Medical patient at bed rest Age 61-74 Arthroscopic surgery Major open surgery (> 45 min) Laparoscopic surgery (> 45 min) Malignancy Confined to bed (> 72 hours) Immobilizing plaster cast Central venous access Age >= 75 History of VTE Family history of VTE Factor V Leiden Prothrombin [id number] Lupus anticoagulant Anticardiolipin antibodies Elevated serum homocysteine Heparin-induced thrombocytopenia Other congenital or acquired thrombophilia Stroke (< 1 month) Elective arthroplasty Hip, pelvis, or leg fracture Acute spinal cord injury (< 1 month) Prophylaxis Regimen: Total Risk Factor Score Risk Level Prophylaxis Regimen 0-1 Low Early ambulation 2 Moderate Order ONE of the following: *Sequential Compression Device (SCD) *Heparin 5000 units SQ BID 3-4 Higher Order ONE of the following medications: *Heparin 5000 units SQ TID *Enoxaparin/Lovenox 40 mg SQ daily (WT < 150 kg, CrCl > 30 mL/min) *Enoxaparin/Lovenox 30 mg SQ daily (WT < 150 kg, CrCl > 10-29 mL/min) *Enoxaparin/Lovenox 30 mg SQ BID (WT < 150 kg, CrCl > 30 mL/min) AND/OR *Sequential Compression Device (SCD) 5 or more Highest Order ONE of the following medications: *Heparin 5000 units SQ TID (Preferred with Epidurals) *Enoxaparin/Lovenox 40 mg SQ daily (WT < 150 kg, CrCl > 30 mL/min) *Enoxaparin/Lovenox 30 mg SQ daily (WT < 150 kg, CrCl > 10-29 mL/min) *Enoxaparin/Lovenox 30 mg SQ BID (WT < 150 kg, CrCl > 30 mL/min) AND *Sequential Compression Device (SCD) Assessment and Plan - Plan This is a 52-year-old female with past medical history of hypertension, hyperlipidemia, diabetes and medication noncompliance presents with malignant hypertension and strokelike symptoms. Initial imaging including head CT, head CTA and neck CTA were negative. 1. CVA versus TIA. Admit the patient to the intensive care unit. Symptoms have resolved. Consult neurology Regular diet. MRI brain pending -will order IV Ativan prior to procedure since patient is claustrophobic. 2. Malignant hypertension. Systolic blood pressure on admission in the 250 systolic. Patient started on nicardipine drip. Blood pressure is much improved however patient feeling drowsy. We will allow permissive hypertension for the first 24 hours and then the blood pressure could slowly be dropped down after that if MRI is negative. We will resume patient's home lisinopril. 3. Hyperlipidemia Check lipid profile. Will start on atorvastatin. 4. Diabetes mellitus type 2. Patient states that she is on oral hypoglycemics. Denies being on insulin Placed on SSI with insulin NovoLog and monitor Accu-Cheks. Check hemoglobin A1c. 5. DVT prophylaxis SCDs, Lovenox subcutaneously. 6. GI prophylaxis Place on PPI. Code Status: Discussed with the patient. She wishes to be full code. Discussed Condition With: RN, patient. Discharge Planning: Pending clinical improvement. H&P: Quality - VTE Deep Vein Thrombosis/Pulmonary Embolism Present on Admission: Yes
[2018-04-14] MEDS: Aspirin 325 MG Tablet PO SCH (13:49)
[2018-04-14] MEDS: Enoxaparin Inj 40 MG/0.4 ML Syringe SQ SCH (13:50)
[2018-04-14] MEDS: Famotidine 20 MG Tablet PO SCH ×2 (13:50→20:10)
[2018-04-14] MEDS: Lisinopril 20 MG Tablet PO SCH (13:50)
[2018-04-14] MEDS ORDERED: Insulin NovoLOG Aspart Correctional Sugar Inj SQ SCH (17:00)
--- NOTE | 2018-04-14 17:36 | MB ---
cc: Doug Garrett MD, PhD Doug Garrett MD PhD DATE: 04/14/2018 REASON FOR CONSULTATION: Stroke. HISTORY OF PRESENT ILLNESS: Ms. Morfin is a very pleasant 52-year-old female who has a history of hypertension. Yesterday she went to bed around 6 p.m., woke up about an hour later and noted severe headache, not feeling well and left-sided weakness involving the left arm and left face. She presented to the emergency room, was found to be extremely hypertensive and her left-sided symptoms did improve. She was placed on Cardene with improvement in blood pressure. Initial CT was negative. She is not a TPA candidate due to the timing as well as the improvement in symptoms and the hypertension. PAST MEDICAL HISTORY: She has a history of hypertension, diabetes, previous stroke in the past, history of [place] in the past. She does not take any blood thinners. Does not take aspirin routinely. Her blood pressure in the ER, systolic was in the 250 range. History of and tubal ligation. CURRENT MEDICATIONS: 1. Dulcolax. 2. Cardene 3. Lactulose p.r.n. 4. Milk of magnesia p.r.n. 5. Senokot 6. Tylenol p.r.n. 7. Chlorhexidine p.r.n. 8. Aspirin 325 mg p.o. daily. 9. Lovenox 40 mg subcutaneous daily. 10. Pravachol 40 mg daily. 11. Prinivil 20 mg daily. NEUROLOGIC EXAM: Blood pressure 155/70, pulse is 75. Higher cortical functions are normal. Cranial nerves 2-12 are normal. Motor exam is 5/5 strength in all groups. There is no drift. Fine motor skills are normal. Reflexes are symmetric. Sensory exam intact. IMAGING STUDIES: CT of the brain, no acute change. CTA of the brain is unremarkable. CT of the neck is also normal. CARDIOLOGY STUDIES: EKG: Sinus rhythm. LABORATORY DATA: The white count is 7400, hemoglobin 13.1, hematocrit 39.7%, platelets 294,000. PT 10, INR 1, aPTT 28.8. Sodium is 141, potassium 4.9, chloride is 105, CO2 of 25.9, BUN is 11, creatinine 0.76, glucose 99. IMPRESSION: Transient ischemic attack versus hypertensive encephalopathy. RECOMMENDATION: Continue blood pressure control. Continue aspirin. We will check an echocardiogram as well as an MRI of the brain. Consider transesophageal echocardiogram. Also, check labs for hypercoagulable state. We will check a lipid panel as well. Doug Garrett MD, PhD ДМИТРИЙ/ , 05:21 PM , 05:34 PM
[2018-04-14] MEDS: Insulin NovoLOG Aspart Correctional Sugar Inj SQ SCH (20:12)
[2018-04-14] MEDS ORDERED: Gadodiamide PF Inj 287 MG/ML 5 ML Syringe (for RAD MRI) IVCONTRAST ONE (21:53)
--- NOTE | 2018-04-14 22:15 | MR ---
EXAM DATE: 04/14/2018 10:03 PM EDT AGE/SEX: 52 years / Female INDICATIONS: CVA. CLINICAL DATA: This is the patient's initial encounter. Patient reports that signs and symptoms have been present for 1 day and indicates a pain score of 0/10. MEDICAL/SURGICAL HISTORY: Diabetes mellitus type II. Hypertension. section. Right wri st surgery. COMPARISON: [facility] [place], MRI BRAIN W/O CONTRAST, 12/13/2011. [facility] [place], CTA HEAD W CONTRAST W 3D, 04/13/2018. . TECHNIQUE: Multiplanar, multisequence examination of the brain was performed without and with 15 ml O mniscan (gadodiamide) contrast as a single exam dose. FINDINGS: Cerebrum: The ventricles are normal for age. No evidence of midline shift, mass lesion, hemorrhage or acute infarction. No extraaxial fluid collections are seen. The pituitary gland and suprasellar cistern are normal in configuration. White Matter: No significant signal abnormalities are seen in the white matter. Posterior Fossa: The cerebellum and brainstem are intact. The 4th ventricle is midline. The cerebel lopontine angle is unremarkable. The cerebellar tonsils are normal in position. Diffusion Imaging: No focal areas of restricted diffusion are seen. No evidence of acute infarction . Extracranial: The visualized portions of the orbits and paranasal sinuses are unremarkable. Post Contrast: No abnormal areas of parenchymal or dural enhancement. No evidence of blood-brain ba rrier breakdown. CONCLUSION: 1. Negative MR Brain with and without contrast. Electronically signed by: Dangelo Garcia MD 04/14/2018 10:14 PM EDT
--- NOTE | 2018-04-15 05:22 | P.PNNEU ---
Subjective Subjective Comments: No acute events reported Patient reports normal strength and sensation. No new neurologic sx. Active Medications: Active Medications Generic Name Dose Route Start Last Admin Trade Name Freq PRN Reason Stop Dose Admin Acetaminophen 650 mg 04/14/18 03:52 04/14/18 03:59 Tylenol PO 650 mg Q4H PRN Administration FEVER > 101 / PAIN Al Hydroxide/Mg Hydroxide 30 ml 04/14/18 00:51 04/14/18 05:06 Milk Of Magnparis Liq PO 30 ml Q12H PRN Administration Mild Constipation Aspirin 325 mg 04/14/18 13:00 04/14/18 13:49 Aspirin PO 325 mg DAILY MARIJA Administration Bisacodyl 10 mg 04/14/18 00:51 Dulcolax Supp RECTAL DAILY PRN SEVERE CONSITIPATION Chlorhexidine Gluconate 3 pack 04/14/18 04:00 04/14/18 03:39 Chlorhexidine 2% Cloth TOPICAL 04/19/18 03:59 3 pack DAILY@0400 MARIJA Administration Chlorhexidine Gluconate 3 pack 04/14/18 04:00 Chlorhexidine 2% Cloth TOPICAL 04/19/18 03:59 DAILY@0400 PRN Extra cloth needed Dextrose 50 ml 04/14/18 12:57 D50w Vial IV.PUSH UNSCH PRN PER HYPOGLYCEMIA PROTOCOL Enoxaparin Sodium 40 mg 04/14/18 13:00 04/14/18 13:50 Lovenox Inj SQ 40 mg Q24H MARIJA Administration Famotidine 20 mg 04/14/18 13:15 04/14/18 20:10 Pepcid PO 20 mg BID MARIJA Administration Glucagon 1 mg 04/14/18 12:57 Glucagon Inj OTHER UNSCH PRN for Hypoglycemia Protocol Nicardipine HCl 25 mg/ Sodium 250 mls @ 50 mls/hr 04/13/18 23:12 04/14/18 10: 03 Chloride IV.CONT 0 mg/hr TITRATE PRN 0 mls/hr Per Protocol Titration Protocol 5 MG/HR Sodium Chloride 1,000 mls @ 25 mls/hr 04/14/18 01:00 04/14/18 03:39 Ns Inj IV.CONT 25 mls/hr .Q24H MARIJA Administration Insulin Aspart 0 unit 04/14/18 17:00 04/14/18 20:12 Novolog Insulin Suppl Scale Inj SQ Not Given ACHS [facility] Protocol Labetalol HCl 10 mg 04/14/18 12:57 Trandate Inj IV.PUSH Q2H PRN For SBP > 220 or DBP > 120 Lactulose 30 ml 04/14/18 00:51 04/14/18 11:13 Lactulose Liq PO 30 ml DAILY PRN Administration SEVERE CONSITIPATION Lisinopril 20 mg 04/14/18 13:15 04/14/18 13:50 Prinivil PO 20 mg DAILY MARIJA Administration Pravastatin Sodium 40 mg 04/14/18 13:02 04/14/18 20:10 Pravachol PO 40 mg HS MARIJA Administration Sennosides 17.2 mg 04/14/18 00:51 04/14/18 09:34 Senokot PO 17.2 mg Q12H PRN Administration Moderate Constipation Sodium Chloride 2 ml 04/14/18 21:00 04/14/18 20:11 Ns Flush IV.FLUSH 2 ml BID MARIJA Administration Sodium Chloride 2 ml 04/14/18 12:57 Ns Flush IV.FLUSH PRN PRN FLUSH AFTER USING IV ACCESS Allergies/Adverse Reactions: Allergies Allergy/AdvReac Type Severity Reaction Status Date / Time No Known Allergies Allergy Unverified 04/09/18 22:32 Physical Exam Vital signs: Vital Signs 04/14/18 05:30 04/14/18 06:00 04/14/18 06:30 Temperature 99.1 F Pulse Rate 75 78 78 Respiratory Rate 13 15 14 Blood Pressure 138/78 127/72 137/69 Pulse Oximetry 99 99 98 04/14/18 07:00 04/14/18 07:04 04/14/18 08:00 Temperature 98.7 F Pulse Rate 80 77 78 Respiratory Rate 24 15 15 Blood Pressure 129/75 129/76 Pulse Oximetry 100 100 99 04/14/18 09:00 04/14/18 10:00 04/14/18 10:44 Temperature Pulse Rate 81 96 H 78 Respiratory Rate 24 22 15 Blood Pressure 142/84 H Pulse Oximetry 100 100 100 04/14/18 11:00 04/14/18 11:30 04/14/18 12:00 Temperature 98.9 F Pulse Rate 70 68 97 H Respiratory Rate 16 19 36 H Blood Pressure 133/72 138/85 172/97 H Pulse Oximetry 99 100 100 04/14/18 12:07 04/14/18 12:58 04/14/18 13:00 Temperature Pulse Rate 73 82 82 Respiratory Rate 15 27 H Blood Pressure 172/97 H Pulse Oximetry 100 100 04/14/18 13:46 04/14/18 14:00 04/14/18 14:01 Temperature Pulse Rate 74 68 70 Respiratory Rate 23 14 15 Blood Pressure 185/96 H 171/83 H Pulse Oximetry 100 100 100 04/14/18 14:30 04/14/18 14:59 04/14/18 15:00 Temperature Pulse Rate 74 95 H 94 H Respiratory Rate 14 22 19 Blood Pressure 195/91 H 127/74 145/83 H Pulse Oximetry 100 100 99 04/14/18 15:51 04/14/18 16:00 04/14/18 16:30 Temperature 99 F Pulse Rate 77 86 72 Respiratory Rate 20 26 H 22 Blood Pressure 123/77 129/83 154/90 H Pulse Oximetry 99 100 100 04/14/18 17:00 04/14/18 17:15 04/14/18 18:00 Temperature Pulse Rate 73 68 89 Respiratory Rate 32 H 21 29 H Blood Pressure 155/82 H Pulse Oximetry 99 100 100 04/14/18 19:00 04/14/18 19:40 04/14/18 20:00 Temperature 98.4 F Pulse Rate 69 71 69 Respiratory Rate 17 21 16 Blood Pressure 134/64 152/82 H Pulse Oximetry 100 99 100 04/14/18 21:00 04/14/18 21:08 04/14/18 21:21 Temperature Pulse Rate 68 66 67 Respiratory Rate 15 17 20 Blood Pressure 164/91 H 165/95 H Pulse Oximetry 100 99 100 04/14/18 22:13 04/14/18 22:15 04/14/18 22:30 Temperature Pulse Rate 69 71 Respiratory Rate 11 L 14 Blood Pressure 178/104 H 139/83 Pulse Oximetry 98 99 98 04/14/18 23:00 04/14/18 23:30 04/15/18 00:00 Temperature 98.6 F Pulse Rate 69 70 68 Respiratory Rate 14 14 14 Blood Pressure 133/72 147/77 H 126/78 Pulse Oximetry 98 99 99 04/15/18 00:30 04/15/18 01:00 04/15/18 01:30 Temperature Pulse Rate 65 64 67 Respiratory Rate 13 13 14 Blood Pressure 127/72 123/66 130/69 Pulse Oximetry 98 98 99 04/15/18 02:00 04/15/18 02:30 04/15/18 03:00 Temperature Pulse Rate 66 62 62 Respiratory Rate 13 13 12 Blood Pressure 124/88 120/69 114/63 Pulse Oximetry 98 98 98 04/15/18 03:30 Temperature Pulse Rate 63 Respiratory Rate 15 Blood Pressure 115/63 Pulse Oximetry 99 Intake & Output 04/14/18 04/14/18 04/15/18 06:59 18:59 06:59 Intake Total 250 / 250 1250 / 1250 1000 / 1000 Balance 250 / 250 1250 / 1250 1000 / 1000 Weight 80.7 kg Intake: IV 250 / 250 250 / 250 1000 / 1000 Cardene Inj 25 MG In NS Inj 240 250 / 250 250 / 250 ML @ 5 MG/HR 50 mls/hr IV.CONT TITRATE PRN Rx#:[id number] Oral 1000 / 1000 Other: # Voids 6 Date of Last Bowel Movement 04/14/18 04/14/18 # Bowel Movements 3 Weight On Admission 80.7 kg - Routine Neurological Exam Present: alert, oriented X3, CN II-XII intact alert, oriented, speech is normal CN 2-12 normal MOTOR--5/5 BUE and BLE, No drift, normal fine motor Objective Pathology Results: MRI brain is normal with no cva. ECHO--pending Laboratory Results - last 24 hr 04/14/18 04/14/18 04/14/18 06:50 12:43 17:39 POC Glucose 95 Beta HCG, Quant 1 Urine Opiates Screen Neg Ur Barbiturates Screen Neg Ur Amphetamines Screen Neg U Benzodiazepines Scrn Neg Urine Cocaine Screen Neg U Cannabinoids Screen Neg 04/14/18 20:07 POC Glucose 121 H Beta HCG, Quant Urine Opiates Screen Ur Barbiturates Screen Ur Amphetamines Screen U Benzodiazepines Scrn Urine Cocaine Screen U Cannabinoids Screen Review/Management - Diagnosis (1) TIA (transient ischemic attack) Code(s): G45.9 - Transient cerebral ischemic attack, unspecified Status: Acute Current Visit: Yes - Review/Management Plan: TIA vs hypertensive encephalopathy RECOMMEND---continue BP control, aspirin 325 mg daily Follow up echocardiogram, hypercoag labs. RUDDY to evauate for PFO (1) TIA (transient ischemic attack) Qualifiers: Qualified Code(s): G45.9 - Transient cerebral ischemic attack, unspecified
[2018-04-15 06:06] LABS: Baso % (Auto) 0.9 % (0.0-2.0); Eos # (Auto) 0.2 th/mm3 (0.0-0.4); Hematocrit 36.5 % (35.0-46.0); Hemoglobin 12.2 gm/dL (11.6-15.3); Lymph % (Auto) 39.1 % (9.0-44.0); Mean Corpuscular HGB Conc 33.4 % (32.0-36.0); Mean Corpuscular Volume 86.7 fL (80.0-100.0); Mean Platelet Volume 8.6 fL (7.0-11.0); Mono # (Auto) 0.3 th/mm3 (0.0-0.9); Mono % (Auto) 6.2 % (0.0-8.0); Neut # (Auto) 2.6 th/mm3 (1.8-7.7); Neut % (Auto) 50.8 % (16.0-70.0); Platelet Count 268 th/mm3 (150-450); Red Blood Count 4.21 mil/mm3 (4.00-5.30); Red Cell Distribution Width 14.3 % (11.6-17.2); White Blood Count 5.1 th/mm3 (4.0-11.0)
[2018-04-15 06:38] LABS: Albumin 3.2 g/dL (3.4-5.0); Anion Gap 9 meq/L (5-15); Aspartate Aminotransferase 19 U/L (15-37); Blood Urea Nitrogen 10 mg/dL (7-18); Calcium 9.4 mg/dL (8.5-10.1); Carbon Dioxide 25.4 meq/L (21.0-32.0); Chloride 107 meq/L (98-107); Cholesterol 166 mg/dL (120-200); Glomerular Filtration Rate Greater Than 89 mL/min (>89); Glucose,Random 99 mg/dL (74-106); Sodium 141 meq/L (136-145)
[2018-04-15 06:42] LABS: Alanine Aminotransferase 24 U/L (10-53); Alkaline Phosphatase 85 U/L (45-117); Chol/HDL Ratio 4.42 Ratio; HDL Cholesterol 37.5 mg/dL (40.0-60.0); LDL Cholesterol,Calculated 102 mg/dL (0-99); Total Protein 7.4 g/dL (6.4-8.2); Triglycerides 133 mg/dL (42-150)
--- NOTE | 2018-04-15 09:09 | P.PNIM ---
Subjective Interval history: No new complaints from the patient. She is feeling back to baseline. Mental status has returned to baseline. RUDDY pending. Physical Exam Vital signs: Vital Signs 04/14/18 10:00 04/14/18 10:44 04/14/18 11:00 Temperature Pulse Rate 96 H 78 70 Respiratory Rate 22 15 16 Blood Pressure 142/84 H 133/72 Pulse Oximetry 100 100 99 04/14/18 11:30 04/14/18 12:00 04/14/18 12:07 Temperature 98.9 F Pulse Rate 68 97 H 73 Respiratory Rate 19 36 H 15 Blood Pressure 138/85 172/97 H 172/97 H Pulse Oximetry 100 100 100 04/14/18 12:58 04/14/18 13:00 04/14/18 13:46 Temperature Pulse Rate 82 82 74 Respiratory Rate 27 H 23 Blood Pressure 185/96 H Pulse Oximetry 100 100 04/14/18 14:00 04/14/18 14:01 04/14/18 14:30 Temperature Pulse Rate 68 70 74 Respiratory Rate 14 15 14 Blood Pressure 171/83 H 195/91 H Pulse Oximetry 100 100 100 04/14/18 14:59 04/14/18 15:00 04/14/18 15:51 Temperature Pulse Rate 95 H 94 H 77 Respiratory Rate 22 19 20 Blood Pressure 127/74 145/83 H 123/77 Pulse Oximetry 100 99 99 04/14/18 16:00 04/14/18 16:30 04/14/18 17:00 Temperature 99 F Pulse Rate 86 72 73 Respiratory Rate 26 H 22 32 H Blood Pressure 129/83 154/90 H Pulse Oximetry 100 100 99 04/14/18 17:15 04/14/18 18:00 04/14/18 19:00 Temperature Pulse Rate 68 89 69 Respiratory Rate 21 29 H 17 Blood Pressure 155/82 H Pulse Oximetry 100 100 100 04/14/18 19:40 04/14/18 20:00 04/14/18 21:00 Temperature 98.4 F Pulse Rate 71 69 68 Respiratory Rate 21 16 15 Blood Pressure 134/64 152/82 H Pulse Oximetry 99 100 100 04/14/18 21:08 04/14/18 21:21 04/14/18 22:13 Temperature Pulse Rate 66 67 Respiratory Rate 17 20 Blood Pressure 164/91 H 165/95 H Pulse Oximetry 99 100 98 04/14/18 22:15 04/14/18 22:30 04/14/18 23:00 Temperature Pulse Rate 69 71 69 Respiratory Rate 11 L 14 14 Blood Pressure 178/104 H 139/83 133/72 Pulse Oximetry 99 98 98 04/14/18 23:30 04/15/18 00:00 04/15/18 00:30 Temperature 98.6 F Pulse Rate 70 68 65 Respiratory Rate 14 14 13 Blood Pressure 147/77 H 126/78 127/72 Pulse Oximetry 99 99 98 04/15/18 01:00 04/15/18 01:30 04/15/18 02:00 Temperature Pulse Rate 64 67 66 Respiratory Rate 13 14 13 Blood Pressure 123/66 130/69 124/88 Pulse Oximetry 98 99 98 04/15/18 02:30 04/15/18 03:00 04/15/18 03:30 Temperature Pulse Rate 62 62 63 Respiratory Rate 13 12 15 Blood Pressure 120/69 114/63 115/63 Pulse Oximetry 98 98 99 04/15/18 04:00 04/15/18 04:30 04/15/18 05:00 Temperature 98.1 F Pulse Rate 63 63 62 Respiratory Rate 13 14 14 Blood Pressure 155/86 H 128/71 130/72 Pulse Oximetry 99 98 98 Intake & Output 04/14/18 04/15/18 04/15/18 18:59 06:59 18:59 Intake Total 1250 / 1250 1350 / 1350 Balance 1250 / 1250 1350 / 1350 Weight 80.6 kg Intake: IV 250 / 250 1000 / 1000 Cardene Inj 25 MG In NS Inj 240 250 / 250 ML @ 5 MG/HR 50 mls/hr IV.CONT TITRATE PRN Rx#:[id number] Oral 1000 / 1000 350 / 350 Other: # Voids 6 3 Date of Last Bowel Movement 04/14/18 04/14/18 # Bowel Movements 3 0 - Routine HEENT Exam Comments: GENERAL: NAD, A&Ox3 HEAD: Normocephalic. NECK: Supple, trachea midline. No lymphadenopathy. EYES: No scleral icterus. No injection or drainage. CARDIOVASCULAR: Regular rate and rhythm without murmurs, gallops, or rubs. RESPIRATORY: Breath sounds equal bilaterally. No accessory muscle use. GASTROINTESTINAL: Abdomen soft, non-tender, nondistended. MUSCULOSKELETAL: No cyanosis, or edema. SKIN: Warm and dry. NEURO: No focal neurological deficits. Results - Labs CBC & Chem 7: 04/15/18 04:57 04/15/18 04:57 Laboratory Results - last 24 hr 04/14/18 04/14/18 04/14/18 12:43 17:39 20:07 WBC RBC Hgb Hct MCV MCH MCHC RDW Plt Count MPV Neut % (Auto) Lymph % (Auto) [place] % (Auto) Eos % (Auto) Baso % (Auto) Neut # (Auto) Lymph # (Auto) [place] # (Auto) Eos # (Auto) Baso # (Auto) WBC Differential Differential Comment Sodium Potassium Chloride Carbon Dioxide Anion Gap BUN Creatinine Estimated GFR POC Glucose 95 121 H Random Glucose Calcium Total Bilirubin AST ALT Alkaline Phosphatase Total Protein Albumin Triglycerides Cholesterol LDL Cholesterol, Calc HDL Cholesterol Cholesterol/HDL Ratio Beta HCG, Quant 1 04/15/18 04/15/18 04:57 04:57 WBC 5.1 RBC 4.21 Hgb 12.2 Hct 36.5 MCV 86.7 MCH 29.0 MCHC 33.4 RDW 14.3 Plt Count 268 MPV 8.6 Neut % (Auto) 50.8 Lymph % (Auto) 39.1 [place] % (Auto) 6.2 Eos % (Auto) 3.0 Baso % (Auto) 0.9 Neut # (Auto) 2.6 Lymph # (Auto) 2.0 [place] # (Auto) 0.3 Eos # (Auto) 0.2 Baso # (Auto) 0.0 WBC Differential . Differential Comment Auto diff final Sodium 141 Potassium 4.0 D Chloride 107 Carbon Dioxide 25.4 Anion Gap 9 BUN 10 Creatinine 0.77 Estimated GFR Greater than 89 POC Glucose Random Glucose 99 Calcium 9.4 Total Bilirubin 0.3 AST 19 ALT 24 Alkaline Phosphatase 85 Total Protein 7.4 Albumin 3.2 L Triglycerides 133 Cholesterol 166 LDL Cholesterol, Calc 102 H HDL Cholesterol 37.5 L Cholesterol/HDL Ratio 4.42 Beta HCG, Quant - Imaging Impressions Head MRI 04/14/18 00:00 CONCLUSION: 1. Negative MR Brain with and without contrast. Assessment and Plan - Plan 52-year-old female admitted secondary to hypertensive urgency with encephalopathy. Possible TIA Old CVA MRI of brain shows old CVA Neurology following RUDDY to evaluate PFO pending Malignant hypertension Improved Patient is now off nicardipine drip Continue lisinopril Follow blood pressures Hyperlipidemia Continue present treatment Follow as an outpatient Continue statin Diabetes mellitus type 2 Follow blood sugars Insulin sliding scale Diabetic diet DVT prophylaxis Lovenox and SCDs Discharge planning If patient continues to be stable, discharge pending negative evaluation for PFO
[2018-04-15] MEDS: Lisinopril 20 MG Tablet PO SCH (09:45)
[2018-04-15] MEDS: Famotidine 20 MG Tablet PO SCH ×2 (09:45→20:42)
[2018-04-15] MEDS: Aspirin 325 MG Tablet PO SCH (09:46)
--- NOTE | 2018-04-15 09:48 | P.CONCA ---
<Sabrina Rogers - Last Filed: 04/15/18 09:43> History of Present Illness Service: cardiology Consult date: 04/15/18 Requesting Physician: Marcelino Tellez Reason for Consult: RUDDY Primary Care Provider: No Primary Care Physician Family Provider: No Primary Care Physician Chief Complaint: Left Sided weakness History of Present Illness: 52 yo AAF with HTN, HLD and DMII and no previous cardiac history admitted for headache and left-sided face and arm numbness found to have hypertensive urgency. BP has improved. Her symptoms have improved with decreased BAILEY. She dose admit to mild intermittent, nonexertional chest pain x several days. No SOB or palpitations. Recently lost her 2 months ago and admits to increased emotional stress. Review of Systems All other systems reviewed negative except as stated in HPI PMFSH - History History Provided By: Patient - Medical History Medical History: Medical History (Last Reviewed 04/15/18 @ 07:05 by Christos Servin) Depression Diabetes High cholesterol Hypertension - Surgical History Surgical History: Surgical History (Last Reviewed 04/15/18 @ 07:06 by Christos Servin) H/O: Hx of tubal ligation - Family History Family History: Family History (Last Updated 04/14/18 @ 12:44 by Jann Valdez MD) Mother Stroke Father Stroke - Tobacco History Second Hand Smoke Exposure: No Tobacco Use In Past 30 Days: No Smoking Status: Never smoker - Alcohol History How Often Do You Have a Drink Containing Alcohol: Never - Substance Use History Substance History: No History of Abuse - Travel History Recent Travel in the [place] Within the Last 8 Weeks: No Recent Travel Out of the Country Within the Last 8 Weeks: No - Immunization History Tetanus Immunization: <5 Years Medications and Allergies Allergies Allergy/AdvReac Type Severity Reaction Status Date / Time No Known Allergies Allergy Unverified 04/09/18 22:32 Active Medications: Active Medications Acetaminophen (Tylenol) 650 mg PO Q4H PRN PRN Reason: FEVER > 101 / PAIN Last Admin: 04/14/18 03:59 Dose: 650 mg Al Hydroxide/Mg Hydroxide (Milk Of Magnesia Liq) 30 ml PO Q12H PRN PRN Reason: Mild Constipation Last Admin: 04/14/18 05:06 Dose: 30 ml Aspirin (Aspirin) 325 mg PO DAILY MARIJA Last Admin: 04/14/18 13:49 Dose: 325 mg Bisacodyl (Dulcolax Supp) 10 mg RECTAL DAILY PRN PRN Reason: SEVERE CONSITIPATION Chlorhexidine Gluconate (Chlorhexidine 2% Cloth) 3 pack TOPICAL DAILY@0400 [facility] Stop: 04/19/18 03:59 Last Admin: 04/14/18 03:39 Dose: 3 pack Chlorhexidine Gluconate (Chlorhexidine 2% Cloth) 3 pack TOPICAL DAILY@0400 PRN PRN Reason: Extra cloth needed Stop: 04/19/18 03:59 Dextrose (D50w Vial) 50 ml IV.PUSH UNSCH PRN PRN Reason: PER HYPOGLYCEMIA PROTOCOL Enoxaparin Sodium (Lovenox Inj) 40 mg SQ Q24H [facility] Last Admin: 04/14/18 13:50 Dose: 40 mg Famotidine (Pepcid) 20 mg PO BID [facility] Last Admin: 04/14/18 20:10 Dose: 20 mg Glucagon (Glucagon Inj) 1 mg OTHER UNSCH PRN PRN Reason: for Hypoglycemia Protocol Nicardipine HCl 25 mg/ Sodium (Chloride) 250 mls @ 50 mls/hr IV.CONT TITRATE PRN; Protocol PRN Reason: Per Protocol Last Titration: 04/14/18 10:03 Dose: 0 mg/hr, 0 mls/hr Sodium Chloride (Ns Inj) 1,000 mls @ 25 mls/hr IV.CONT .Q24H [facility] Last Admin: 04/14/18 03:39 Dose: 25 mls/hr Insulin Aspart (Novolog Insulin Suppl Scale Inj) 0 unit SQ ACHS [facility]; Protocol Last Admin: 04/14/18 20:12 Dose: Not Given Labetalol HCl (Trandate Inj) 10 mg IV.PUSH Q2H PRN PRN Reason: For SBP > 220 or DBP > 120 Lactulose (Lactulose Liq) 30 ml PO DAILY PRN PRN Reason: SEVERE CONSITIPATION Last Admin: 04/14/18 11:13 Dose: 30 ml Lisinopril (Prinivil) 20 mg PO DAILY [facility] Last Admin: 04/14/18 13:50 Dose: 20 mg Pravastatin Sodium (Pravachol) 40 mg PO HS [facility] Last Admin: 04/14/18 20:10 Dose: 40 mg Sennosides (Senokot) 17.2 mg PO Q12H PRN PRN Reason: Moderate Constipation Last Admin: 04/14/18 09:34 Dose: 17.2 mg Sodium Chloride (Ns Flush) 2 ml IV.FLUSH BID MARIJA Last Admin: 04/14/18 20:11 Dose: 2 ml Sodium Chloride (Ns Flush) 2 ml IV.FLUSH PRN PRN PRN Reason: FLUSH AFTER USING IV ACCESS Exam Vital signs: Vital Signs 04/14/18 10:00 04/14/18 10:44 04/14/18 11:00 Temperature Pulse Rate 96 H 78 70 Respiratory Rate 22 15 16 Blood Pressure 142/84 H 133/72 Pulse Oximetry 100 100 99 04/14/18 11:30 04/14/18 12:00 04/14/18 12:07 Temperature 98.9 F Pulse Rate 68 97 H 73 Respiratory Rate 19 36 H 15 Blood Pressure 138/85 172/97 H 172/97 H Pulse Oximetry 100 100 100 04/14/18 12:58 04/14/18 13:00 04/14/18 13:46 Temperature Pulse Rate 82 82 74 Respiratory Rate 27 H 23 Blood Pressure 185/96 H Pulse Oximetry 100 100 04/14/18 14:00 04/14/18 14:01 04/14/18 14:30 Temperature Pulse Rate 68 70 74 Respiratory Rate 14 15 14 Blood Pressure 171/83 H 195/91 H Pulse Oximetry 100 100 100 04/14/18 14:59 04/14/18 15:00 04/14/18 15:51 Temperature Pulse Rate 95 H 94 H 77 Respiratory Rate 22 19 20 Blood Pressure 127/74 145/83 H 123/77 Pulse Oximetry 100 99 99 04/14/18 16:00 04/14/18 16:30 04/14/18 17:00 Temperature 99 F Pulse Rate 86 72 73 Respiratory Rate 26 H 22 32 H Blood Pressure 129/83 154/90 H Pulse Oximetry 100 100 99 04/14/18 17:15 04/14/18 18:00 04/14/18 19:00 Temperature Pulse Rate 68 89 69 Respiratory Rate 21 29 H 17 Blood Pressure 155/82 H Pulse Oximetry 100 100 100 04/14/18 19:40 04/14/18 20:00 04/14/18 21:00 Temperature 98.4 F Pulse Rate 71 69 68 Respiratory Rate 21 16 15 Blood Pressure 134/64 152/82 H Pulse Oximetry 99 100 100 04/14/18 21:08 04/14/18 21:21 04/14/18 22:13 Temperature Pulse Rate 66 67 Respiratory Rate 17 20 Blood Pressure 164/91 H 165/95 H Pulse Oximetry 99 100 98 04/14/18 22:15 04/14/18 22:30 04/14/18 23:00 Temperature Pulse Rate 69 71 69 Respiratory Rate 11 L 14 14 Blood Pressure 178/104 H 139/83 133/72 Pulse Oximetry 99 98 98 04/14/18 23:30 04/15/18 00:00 04/15/18 00:30 Temperature 98.6 F Pulse Rate 70 68 65 Respiratory Rate 14 14 13 Blood Pressure 147/77 H 126/78 127/72 Pulse Oximetry 99 99 98 04/15/18 01:00 04/15/18 01:30 04/15/18 02:00 Temperature Pulse Rate 64 67 66 Respiratory Rate 13 14 13 Blood Pressure 123/66 130/69 124/88 Pulse Oximetry 98 99 98 04/15/18 02:30 04/15/18 03:00 04/15/18 03:30 Temperature Pulse Rate 62 62 63 Respiratory Rate 13 12 15 Blood Pressure 120/69 114/63 115/63 Pulse Oximetry 98 98 99 04/15/18 04:00 04/15/18 04:30 04/15/18 05:00 Temperature 98.1 F Pulse Rate 63 63 62 Respiratory Rate 13 14 14 Blood Pressure 155/86 H 128/71 130/72 Pulse Oximetry 99 98 98 Intake & Output 04/14/18 04/15/18 04/15/18 18:59 06:59 18:59 Intake Total 1250 / 1250 1350 / 1350 Balance 1250 / 1250 1350 / 1350 Weight 80.6 kg Intake: IV 250 / 250 1000 / 1000 Cardene Inj 25 MG In NS Inj 240 250 / 250 ML @ 5 MG/HR 50 mls/hr IV.CONT TITRATE PRN Rx#:[id number] Oral 1000 / 1000 350 / 350 Other: # Voids 6 3 Date of Last Bowel Movement 04/14/18 04/14/18 # Bowel Movements 3 0 Narrative: GENERAL: SKIN: Warm and dry. HEAD: Normocephalic. EYES: No scleral icterus. No injection or drainage. NECK: Supple, trachea midline. No JVD or lymphadenopathy. CARDIOVASCULAR: Regular rate and rhythm without murmurs, gallops, or rubs. RESPIRATORY: Breath sounds equal bilaterally. No accessory muscle use. GASTROINTESTINAL: Abdomen soft, non-tender, nondistended. MUSCULOSKELETAL: No cyanosis, or edema. BACK: Nontender without obvious deformity. No CVA tenderness. Results 04/15/18 04:57 04/15/18 04:57 Cardiac Enzymes 04/15/18 Range/Units 04:57 AST 19 (15-37) U/L Lipids 04/15/18 Range/Units 04:57 Triglycerides 133 (42-150) mg/dL Cholesterol 166 (120-200) mg/dL HDL Cholesterol 37.5 L (40.0-60.0) mg/dL Cholesterol/HDL Ratio 4.42 Ratio CBC 04/15/18 Range/Units 04:57 WBC 5.1 (4.0-11.0) th/mm3 RBC 4.21 (4.00-5.30) mil/mm3 Hgb 12.2 (11.6-15.3) gm/dL Hct 36.5 (35.0-46.0) % Plt Count 268 (150-450) th/mm3 Neut # (Auto) 2.6 (1.8-7.7) th/mm3 Lymph # (Auto) 2.0 (1.0-4.8) th/mm3 [place] # (Auto) 0.3 (0.0-0.9) th/mm3 Eos # (Auto) 0.2 (0.0-0.4) th/mm3 Baso # (Auto) 0.0 (0.0-0.2) th/mm3 Comprehensive Metabolic Panel 04/15/18 Range/Units 04:57 Sodium 141 (136-145) meq/L Potassium 4.0 D (3.5-5.1) meq/L Chloride 107 (98-107) meq/L Carbon Dioxide 25.4 (21.0-32.0) meq/L BUN 10 (7-18) mg/dL Creatinine 0.77 (0.50-1.00) mg/dL Calcium 9.4 (8.5-10.1) mg/dL AST 19 (15-37) U/L ALT 24 (10-53) U/L Alkaline Phosphatase 85 (45-117) U/L Total Protein 7.4 (6.4-8.2) g/dL Albumin 3.2 L (3.4-5.0) g/dL Intake and Output 04/14/18 04/15/18 04/15/18 22:59 06:59 14:59 Intake Total 1999 350 / 350 Balance 1999 350 / 350 Intake: IV 1000 / 1000 Oral 1000 / 1000 350 / 350 Other: # Voids 6 3 Date of Last Bowel Movement 04/14/18 04/14/18 # Bowel Movements 3 0 Weight 80.6 kg Assessment and Plan - Assessment (1) CVA (cerebral vascular accident) Code(s): I63.9 - Cerebral infarction, unspecified Status: Acute (2) TIA (transient ischemic attack) Code(s): G45.9 - Transient cerebral ischemic attack, unspecified Status: Acute - Plan 52 yo AAF with HTN, HLD and DMII and no previous cardiac history admitted for headache and left-sided face and arm numbness found to have hypertensive urgency. BP has improved. Her symptoms have improved with decreased BAILEY. She dose admit to mild intermittent, nonexertional chest pain x several days. No SOB or palpitations. Recently lost her 2 months ago and admits to increased emotional stress. TIA/CVA- will plan for RUDDY to rule out PFO keep npo <Minor,Marcelino - Last Filed: 04/15/18 10:06> History of Present Illness Primary Care Provider: No Primary Care Physician Family Provider: No Primary Care Physician PMF - Medical History Medical History: Medical History (Last Reviewed 04/15/18 @ 07:05 by Christos Servin) Depression Diabetes High cholesterol Hypertension - Surgical History Surgical History: Surgical History (Last Reviewed 04/15/18 @ 07:06 by Christos Servin) H/O: Hx of tubal ligation - Family History Family History: Family History (Last Updated 04/14/18 @ 12:44 by Jann Valdez MD) Mother Stroke Father Stroke Medications and Allergies Active Medications: Active Medications Acetaminophen (Tylenol) 650 mg PO Q4H PRN PRN Reason: FEVER > 101 / PAIN Last Admin: 04/14/18 03:59 Dose: 650 mg Al Hydroxide/Mg Hydroxide (Milk Of Magnesia Liq) 30 ml PO Q12H PRN PRN Reason: Mild Constipation Last Admin: 04/14/18 05:06 Dose: 30 ml Aspirin (Aspirin) 325 mg PO DAILY [facility] Last Admin: 04/15/18 09:46 Dose: 325 mg Bisacodyl (Dulcolax Supp) 10 mg RECTAL DAILY PRN PRN Reason: SEVERE CONSITIPATION Chlorhexidine Gluconate (Chlorhexidine 2% Cloth) 3 pack TOPICAL DAILY@0400 MARIJA Stop: 04/19/18 03:59 Last Admin: 04/14/18 03:39 Dose: 3 pack Chlorhexidine Gluconate (Chlorhexidine 2% Cloth) 3 pack TOPICAL DAILY@0400 PRN PRN Reason: Extra cloth needed Stop: 04/19/18 03:59 Dextrose (D50w Vial) 50 ml IV.PUSH UNSCH PRN PRN Reason: PER HYPOGLYCEMIA PROTOCOL Enoxaparin Sodium (Lovenox Inj) 40 mg SQ Q24H [facility] Last Admin: 04/14/18 13:50 Dose: 40 mg Famotidine (Pepcid) 20 mg PO BID [facility] Last Admin: 04/15/18 09:45 Dose: 20 mg Glucagon (Glucagon Inj) 1 mg OTHER UNSCH PRN PRN Reason: for Hypoglycemia Protocol Nicardipine HCl 25 mg/ Sodium (Chloride) 250 mls @ 50 mls/hr IV.CONT TITRATE PRN; Protocol PRN Reason: Per Protocol Last Titration: 04/14/18 10:03 Dose: 0 mg/hr, 0 mls/hr Sodium Chloride (Ns Inj) 1,000 mls @ 25 mls/hr IV.CONT .Q24H [facility] Last Admin: 04/14/18 03:39 Dose: 25 mls/hr Insulin Aspart (Novolog Insulin Suppl Scale Inj) 0 unit SQ ACHS [facility]; Protocol Last Admin: 04/14/18 20:12 Dose: Not Given Labetalol HCl (Trandate Inj) 10 mg IV.PUSH Q2H PRN PRN Reason: For SBP > 220 or DBP > 120 Lactulose (Lactulose Liq) 30 ml PO DAILY PRN PRN Reason: SEVERE CONSITIPATION Last Admin: 04/14/18 11:13 Dose: 30 ml Lisinopril (Prinivil) 20 mg PO DAILY [facility] Last Admin: 04/15/18 09:45 Dose: 20 mg Pravastatin Sodium (Pravachol) 40 mg PO HS [facility] Last Admin: 04/14/18 20:10 Dose: 40 mg Sennosides (Senokot) 17.2 mg PO Q12H PRN PRN Reason: Moderate Constipation Last Admin: 04/14/18 09:34 Dose: 17.2 mg Sodium Chloride (Ns Flush) 2 ml IV.FLUSH BID MARIJA Last Admin: 04/14/18 20:11 Dose: 2 ml Sodium Chloride (Ns Flush) 2 ml IV.FLUSH PRN PRN PRN Reason: FLUSH AFTER USING IV ACCESS Exam Vital signs: Vital Signs 04/14/18 10:44 04/14/18 11:00 04/14/18 11:30 Temperature Pulse Rate 78 70 68 Respiratory Rate 15 16 19 Blood Pressure 142/84 H 133/72 138/85 Pulse Oximetry 100 99 100 04/14/18 12:00 04/14/18 12:07 04/14/18 12:58 Temperature 98.9 F Pulse Rate 97 H 73 82 Respiratory Rate 36 H 15 Blood Pressure 172/97 H 172/97 H Pulse Oximetry 100 100 04/14/18 13:00 04/14/18 13:46 04/14/18 14:00 Temperature Pulse Rate 82 74 68 Respiratory Rate 27 H 23 14 Blood Pressure 185/96 H Pulse Oximetry 100 100 100 04/14/18 14:01 04/14/18 14:30 04/14/18 14:59 Temperature Pulse Rate 70 74 95 H Respiratory Rate 15 14 22 Blood Pressure 171/83 H 195/91 H 127/74 Pulse Oximetry 100 100 100 04/14/18 15:00 04/14/18 15:51 04/14/18 16:00 Temperature 99 F Pulse Rate 94 H 77 86 Respiratory Rate 19 20 26 H Blood Pressure 145/83 H 123/77 129/83 Pulse Oximetry 99 99 100 04/14/18 16:30 04/14/18 17:00 04/14/18 17:15 Temperature Pulse Rate 72 73 68 Respiratory Rate 22 32 H 21 Blood Pressure 154/90 H 155/82 H Pulse Oximetry 100 99 100 04/14/18 18:00 04/14/18 19:00 04/14/18 19:40 Temperature Pulse Rate 89 69 71 Respiratory Rate 29 H 17 21 Blood Pressure 134/64 Pulse Oximetry 100 100 99 04/14/18 20:00 04/14/18 21:00 04/14/18 21:08 Temperature 98.4 F Pulse Rate 69 68 66 Respiratory Rate 16 15 17 Blood Pressure 152/82 H 164/91 H Pulse Oximetry 100 100 99 04/14/18 21:21 04/14/18 22:13 04/14/18 22:15 Temperature Pulse Rate 67 69 Respiratory Rate 20 11 L Blood Pressure 165/95 H 178/104 H Pulse Oximetry 100 98 99 04/14/18 22:30 04/14/18 23:00 04/14/18 23:30 Temperature Pulse Rate 71 69 70 Respiratory Rate 14 14 14 Blood Pressure 139/83 133/72 147/77 H Pulse Oximetry 98 98 99 04/15/18 00:00 04/15/18 00:30 04/15/18 01:00 Temperature 98.6 F Pulse Rate 68 65 64 Respiratory Rate 14 13 13 Blood Pressure 126/78 127/72 123/66 Pulse Oximetry 99 98 98 04/15/18 01:30 04/15/18 02:00 04/15/18 02:30 Temperature Pulse Rate 67 66 62 Respiratory Rate 14 13 13 Blood Pressure 130/69 124/88 120/69 Pulse Oximetry 99 98 98 04/15/18 03:00 04/15/18 03:30 04/15/18 04:00 Temperature 98.1 F Pulse Rate 62 63 63 Respiratory Rate 12 15 13 Blood Pressure 114/63 115/63 155/86 H Pulse Oximetry 98 99 99 04/15/18 04:30 04/15/18 05:00 Temperature Pulse Rate 63 62 Respiratory Rate 14 14 Blood Pressure 128/71 130/72 Pulse Oximetry 98 98 Intake & Output 04/14/18 04/15/18 04/15/18 18:59 06:59 18:59 Intake Total 1250 / 1250 1350 / 1350 Balance 1250 / 1250 1350 / 1350 Weight 80.6 kg Intake: IV 250 / 250 1000 / 1000 Cardene Inj 25 MG In NS Inj 240 250 / 250 ML @ 5 MG/HR 50 mls/hr IV.CONT TITRATE PRN Rx#:[id number] Oral 1000 / 1000 350 / 350 Other: # Voids 6 3 Date of Last Bowel Movement 04/14/18 04/14/18 # Bowel Movements 3 0 Results 04/15/18 04:57 04/15/18 04:57 Cardiac Enzymes 04/15/18 Range/Units 04:57 AST 19 (15-37) U/L Lipids 04/15/18 Range/Units 04:57 Triglycerides 133 (42-150) mg/dL Cholesterol 166 (120-200) mg/dL HDL Cholesterol 37.5 L (40.0-60.0) mg/dL Cholesterol/HDL Ratio 4.42 Ratio CBC 04/15/18 Range/Units 04:57 WBC 5.1 (4.0-11.0) th/mm3 RBC 4.21 (4.00-5.30) mil/mm3 Hgb 12.2 (11.6-15.3) gm/dL Hct 36.5 (35.0-46.0) % Plt Count 268 (150-450) th/mm3 Neut # (Auto) 2.6 (1.8-7.7) th/mm3 Lymph # (Auto) 2.0 (1.0-4.8) th/mm3 [place] # (Auto) 0.3 (0.0-0.9) th/mm3 Eos # (Auto) 0.2 (0.0-0.4) th/mm3 Baso # (Auto) 0.0 (0.0-0.2) th/mm3 Comprehensive Metabolic Panel 04/15/18 Range/Units 04:57 Sodium 141 (136-145) meq/L Potassium 4.0 D (3.5-5.1) meq/L Chloride 107 (98-107) meq/L Carbon Dioxide 25.4 (21.0-32.0) meq/L BUN 10 (7-18) mg/dL Creatinine 0.77 (0.50-1.00) mg/dL Calcium 9.4 (8.5-10.1) mg/dL AST 19 (15-37) U/L ALT 24 (10-53) U/L Alkaline Phosphatase 85 (45-117) U/L Total Protein 7.4 (6.4-8.2) g/dL Albumin 3.2 L (3.4-5.0) g/dL Intake and Output 04/14/18 04/15/18 04/15/18 22:59 06:59 14:59 Intake Total 1999 350 / 350 Balance 1999 350 / 350 Intake: IV 999 / 999 Oral 999 350 / 350 Other: # Voids 6 3 Date of Last Bowel Movement 04/14/18 04/14/18 # Bowel Movements 3 0 Weight 80.6 kg Assessment and Plan - Assessment (1) CVA (cerebral vascular accident) Code(s): I63.9 - Cerebral infarction, unspecified Status: Acute (2) TIA (transient ischemic attack) Code(s): G45.9 - Transient cerebral ischemic attack, unspecified Status: Acute - Attending Attestation NPO p MN tuesday night RUDDY tuesday cancel TTE <Sabrina Rogers - Last Filed: 04/15/18 09:43> (2) TIA (transient ischemic attack) Qualifiers: Qualified Code(s): G45.9 - Transient cerebral ischemic attack, unspecified <Marcelino Tellez - Last Filed: 04/15/18 10:06> (2) TIA (transient ischemic attack) Qualifiers: Qualified Code(s): G45.9 - Transient cerebral ischemic attack, unspecified
[2018-04-15] MEDS: Sod Chloride 0.9% Inj 1,000 ML IV.CONT SCH (13:39)
[2018-04-15] MEDS: Enoxaparin Inj 40 MG/0.4 ML Syringe SQ SCH (13:40)
[2018-04-15 14:00] LABS: Hemoglobin A1c 6.4 % (4.3-6.0)
[2018-04-15] MEDS: Insulin NovoLOG Aspart Correctional Sugar Inj SQ SCH ×3 (20:12→20:44)
[2018-04-16] MEDS: Sod Chloride 0.9% Inj 1,000 ML IV.CONT SCH (02:56)
[2018-04-16] MEDS: Chlorhexidine Gluconate 2% 1 Pack (2 Cloths) TOPICAL SCH (03:54)
[2018-04-16] MEDS: Acetaminophen 325 MG Tablet PO PRN ×2 (05:03→11:02)
[2018-04-16] MEDS: Aspirin 325 MG Tablet PO SCH (09:39)
[2018-04-16] MEDS: Lisinopril 20 MG Tablet PO SCH (09:39)
[2018-04-16] MEDS: Famotidine 20 MG Tablet PO SCH (09:39)
--- NOTE | 2018-04-16 09:57 | P.PN ---
Subjective Interval history: 52 years old right handed female came in with transinet left sided weakness no complains, weakness resolved, no headaches apparently ran out of meds for weeks- also recently lost her 2 months ago she has an appt on Tuesday for SSS disability Physical Exam Vital signs: Vital Signs 04/15/18 12:00 04/15/18 12:19 04/15/18 16:00 Temperature 98.4 F 97.7 F Pulse Rate 68 72 64 Respiratory Rate 18 18 Blood Pressure 169/81 H 108/63 Pulse Oximetry 99 97 04/15/18 18:00 04/15/18 20:00 04/15/18 20:40 Temperature 97.9 F Pulse Rate 70 74 Respiratory Rate 20 Blood Pressure 131/83 Pulse Oximetry 99 96 04/16/18 00:00 04/16/18 04:00 Temperature 97.5 F L 97.5 F L Pulse Rate 63 54 L Respiratory Rate 16 16 Blood Pressure 138/71 137/65 Pulse Oximetry 96 97 Intake & Output 04/15/18 04/16/18 04/16/18 18:59 06:59 18:59 Intake Total 1000 / 1000 1080 / 1080 Balance 1000 / 1000 1080 / 1080 Weight 80.4 kg Intake: IV 1000 / 1000 NS Inj 1,000 ML @ 25 mls/hr IV. 1000 / 1000 CONT .Q24H MARIJA Rx#:[id number] Oral 1080 / 1080 Other: # Voids 2 Date of Last Bowel Movement 04/14/18 04/15/18 # Bowel Movements 1 Narrative: awake and alert, no acute distress, speech clear anicteric, pupils equally reactive to light lungs- no rales no bruit regular rhythm abdomen soft, good bowel sounds extremities no edema neuro exam- unremarkable Results - Labs CBC & Chem 7: 04/15/18 04:57 04/16/18 12:23 Laboratory Results - last 24 hr 04/15/18 04/15/18 04/15/18 04:57 12:02 16:57 POC Glucose 87 112 H Hemoglobin A1c 6.4 H 04/15/18 04/16/18 19:59 07:52 POC Glucose 88 93 Hemoglobin A1c Assessment and Plan - Plan 52-year-old right handed female admitted secondary to hypertensive urgency with encephalopathy.with transient left sided weakness TIA Old CVA - neuro stable MRI of brain shows old CVA Neurology following- ASA daily RUDDY to evaluate PFO in am Up and ambulate- increase activity -PT consult Malignant hypertension Improved Patient is off nicardipine drip Continue lisinopril 20 mng daily. Advise compliance- ran out of med for days Follow blood pressures Hyperlipidemia Continue present treatment Follow as an outpatient Continue statin- advise compliance Diabetes mellitus type 2- A1C 6.4 Follow blood sugars, states good hypoglycemic awareness Insulin sliding scale Diabetic diet- counselled- patient went off diet since her passed 2 months ago restart metformin in 48 hours - was on this as OP - will hold for now - angelne patient had CTA done 04/13- check BMP now DVT prophylaxis Lovenox and SCDs Discharge planning If patient continues to be stable, discharge pending negative evaluation for PFO advise ff up with her PCP- states she has one in [place] ADD - inform by nurse that patient pulled out her lines and left the unit
[2018-04-16] MEDS: Enoxaparin Inj 40 MG/0.4 ML Syringe SQ SCH (12:43)
[2018-04-16 12:57] LABS: Anion Gap 7 meq/L (5-15); Blood Urea Nitrogen 11 mg/dL (7-18); Carbon Dioxide 22.6 meq/L (21.0-32.0); Chloride 112 meq/L (98-107); Glomerular Filtration Rate Greater Than 89 mL/min (>89); Glucose,Random 89 mg/dL (74-106); Potassium 4.2 meq/L (3.5-5.1); Sodium 142 meq/L (136-145)
--- NOTE | 2018-04-16 21:04 | P.AMA ---
AMA Note - AMA Note AMA Statement: Patient Virgilio Morfin has decided to leave the hospital against medical advice. This patient has the capacity to refuse care and understands the risks of leaving, including permanent disability and/or , and has had an opportunity to ask questions about his/her condition. The patient has been informed that he/she may return for care at any time, and follow up has been arranged/advised. - AMA Note Discharge Disposition: Left Against Medical Advice Patient Condition on Discharge: Fair
[2018-04-19 13:51] LABS: Dil Russell Viper Venom Conf ( ND (NEGATIVE); Dil Russell Viper Venom Time M ND (CORRECTED); Lupus Anticoagulant PTT Screen 38 seconds (< OR = 40)
[2018-04-19 17:57] LABS: Factor V Leiden Mutation Negative (Negative); Protein C Antigen 100 % (70-150)
[2018-04-20 14:12] LABS: Lupus Anticoagulant NOT DETECTED
== END 2018-04-16 15:28 | disposition left against medical advice (07) ==
LOC: NEPE 21:21 → NEDA 04-14 00:30 → HIMC 04-14 01:40 → N04 04-15 11:26
PROVIDERS: ADMIT Internal Medicine; ATTEND Internal Medicine

== ENCOUNTER 2018-04-21 10:58 | Observation (INO) ==
--- NOTE | 2018-04-21 12:32 | ED ---
HPI General Chief complaint: Neuro Symptoms/Deficit Stated complaint: High BP Time Seen by Provider: 04/21/18 12:13 Source: patient Mode of arrival: ambulatory Limitations: no limitations History of Present Illness HPI narrative: 2-year-old female patient with history of diabetes and hypertension, presents to the ER today because she states that today her blood pressure was extremely high, she complains of a headache, 8 out of 10 left upper quadrant pain for several days, and dark stools, constipation. She also states that she had a little chest discomfort that lasted a few minutes and is gone away. She denies any vomiting, fevers, shortness of breath, or other symptoms. She was about to go see her primary care physician but has not seen them. Related Data Allergies Allergy/AdvReac Type Severity Reaction Status Date / Time No Known Allergies Allergy Verified 04/21/18 12:22 Review of Systems Except as stated in HPI: all other systems reviewed are negative PMFSH History History Provided By: Patient Medical History Medical History Depression (Acute) Diabetes (Acute) High cholesterol (Acute) Hypertension (Acute) Surgical History Surgical History H/O: (Acute) Hx of tubal ligation (Acute) Family History Family History Mother Stroke Father Stroke Social History Social History Substance History: No History of Abuse Second Hand Smoke Exposure: No Smoking Status: Never smoker How Often Do You Have a Drink Containing Alcohol: Never Recent Travel in [place] within the Last 8 Weeks: No Recent Out of Country Travel within the Last 8 Weeks: No Exam Narrative Exam Narrative: GENERAL: Well-developed, middle-aged -[place] female patient currently in mild distress. Appears anxious, awake and oriented x3. SKIN: Focused skin assessment warm/dry. HEAD: Atraumatic. Normocephalic. EYES: Pupils equal and round. No scleral icterus. No injection or drainage. ENT: No nasal bleeding or discharge. Mucous membranes pink and moist. NECK: Trachea midline. No JVD. CARDIOVASCULAR: Regular rate and rhythm. No murmur appreciated. RESPIRATORY: No accessory muscle use. Clear to auscultation. Breath sounds equal bilaterally. GASTROINTESTINAL: Abdomen soft, left upper quadrant tenderness without guarding or rebound, nondistended. Hepatic and splenic margins not palpable. RECTAL EXAM: No masses or tenderness, stool is brown. Hemoccult negative. MUSCULOSKELETAL: No obvious deformities. No clubbing. No cyanosis. No edema. NEUROLOGICAL: Awake and alert. No obvious cranial nerve deficits. Motor grossly within normal limits. Normal speech. PSYCHIATRIC: Appropriate mood and affect; insight and judgment normal. Procedures Hemaprompt Stool Procedural Steps Taken: developer placed on specimen and control areas and controls appropriately positive and negative Hemaprompt Stool Result: negative Course Hospital Course: Patient was given clonidine in the ER with good response from her blood pressure. Her headaches had some mild improvements with the improvement in blood pressure. CT the brain was negative for any signs of acute intracranial processes. Her exam did not show any signs of focal neurological deficits. She had mild left sided abdominal tenderness and workup for this did not show any signs of leukocytosis or pancreatitis or significant metabolic issues. She continues to complain of some chest discomfort, and considering her elevated blood pressure is well, my plan would be to admit her for observation. Case was discussed with Dr. Capone for admission. Initial Documented Vital Signs Temperature 98.5 F 04/21/18 11:49 Pulse Rate 84 04/21/18 11:49 Respiratory Rate 16 04/21/18 11:49 Blood Pressure 243/113 H 04/21/18 11:49 Pulse Oximetry 99 04/21/18 11:49 Last Documented Vital Signs Temperature 98.5 F 04/21/18 11:49 Pulse Rate 70 04/21/18 16:02 Respiratory Rate 16 04/21/18 16:02 Blood Pressure 101/61 04/21/18 16:02 Pulse Oximetry 98 04/21/18 16:02 Medical Decision Making Differential Diagnosis Differential Diagnosis: Hypertensive urgency versus anxiety attack versus medication noncompliance versus migraine headaches versus ICH versus metabolic issues versus GI bleed Lab Data Result diagrams: 04/21/18 14:14 Lab Results 04/21/18 04/21/18 04/21/18 Range/Units 13:08 14:11 14:14 PT 10.7 (9.8-11.6) sec INR 1.1 Ratio APTT 27.7 (24.3-30.1) sec Sodium 144 (136-145) meq/L Potassium 3.7 (3.5-5.1) meq/L Chloride 109 H (98-107) meq/L Carbon Dioxide 26.8 (21.0-32.0) meq/L Anion Gap 8 (5-15) meq/L BUN 8 (7-18) mg/dL Creatinine 0.66 (0.50-1.00) mg/dL Estimated GFR Greater than 89 (>89) mL/min Random Glucose 94 (74-106) mg/dL Calcium 8.6 (8.5-10.1) mg/dL Total Bilirubin 0.2 (0.2-1.0) mg/dL AST 19 (15-37) U/L ALT 29 (10-53) U/L Alkaline Phosphatase 83 (45-117) U/L Total Creatine Kinase 201 H (26-192) U/L CK-MB (CK-2) 1.2 (0.5-3.6) ng/mL CK-MB (CK-2) % 0.6 (0.0-4.0) % Troponin I Less than 0.02 L (0.02-0.05) ng/mL Total Protein 7.3 (6.4-8.2) g/dL Albumin 3.3 L (3.4-5.0) g/dL Lipase 70 L (73-393) U/L Urine Color Straw (Yellw/Straw) Urine Clarity Clear (Clear) Urine pH 6.0 (5.0-8.5) Ur Specific [place] 1.010 (1.002-1.035) Urine Protein Negative (Neg-Trace) mg/dL Urine Glucose (UA) Negative (Negative) mg/dL Urine Ketones Negative (Negative) mg/dL Urine Occult Blood Negative (Negative) Urine Nitrate Negative (Negative) Urine Bilirubin Negative (Negative) Urine Urobilinogen Less than 2 (Less than 2) mg/dL Ur Leukocyte Esterase Negative (Negative) Urine WBC Less than 1 (0-5) /hpf Ur Squamous Epith Cells <1 (0-5) /hpf Micro UA Comment Culture not ind Urine Culture Comments Culture not ind Imaging Data Radiologist's impression: Chest X-Ray 04/21/18 12:24 CONCLUSION: No active disease. Head CT 04/21/18 12:24 CONCLUSION: 1. Negative for acute process. Discharge Plan Discharge Disposition Patient Disposition: 30 Still Patient Discharge Condition Condition: Stable Discharge Details Anticipated Discharge Date: 04/21/18 Diagnosis: Hypertensive urgency, Chest pain Physicians Team ED Provider: Chasity Gonzalez Primary Care Provider: Primary Care Just[place],No Discharge Interventions Interventions: Vital Signs Last Done: 04/21/18 16:02 Status ED Status: Pending Admission
--- NOTE | 2018-04-21 13:14 | XR ---
EXAM DATE: 04/21/2018 1:01 PM EDT AGE/SEX: 52 years / Female INDICATIONS: Chest pain. CLINICAL DATA: This is the patient's initial encounter. Patient reports that signs and symptoms have been present for 1 day and indicates a pain score of 8/10. MEDICAL/SURGICAL HISTORY: Hypertension. None. COMPARISON: [facility] [place], CHEST 1V SINGLE AP, 04/13/2018. . FINDINGS: A single AP view of the chest demonstrates the lungs to be symmetrically aerated without evidence of mass, infiltrate or effusion. The cardiomediastinal contours are unremarkable. Osseous structures a re intact. CONCLUSION: No active disease. Electronically signed by: Jason Jolley MD 04/21/2018 1:12 PM EDT
[2018-04-21 13:52] LABS: Activated Partial Thrombo Time 27.7 sec (24.3-30.1); INR 1.1 Ratio
--- NOTE | 2018-04-21 13:55 | CT ---
EXAM DATE: 04/21/2018 1:28 PM EDT AGE/SEX: 52 years / Female INDICATIONS: High Blood pressure, Cephalgia CLINICAL DATA: This is the patient's initial encounter. Patient reports that signs and symptoms have been present for 1 day and indicates a pain score of 2/10. MEDICAL/SURGICAL HISTORY: Diabetes. Hypertension. section. Tubal ligation. RADIATION DOSE: 66.36 CTDI (mGy) COMPARISON: C, CTA HEAD W CONTRAST W 3D, 04/13/2018. . TECHNIQUE: CT of the head without contrast. Using automated exposure control and adjustment of the mA and/or kV according to patient size, radiation dose was kept as low as reasonably achievable to ob tain optimal diagnostic quality images. DICOM format image data is available electronically for revi ew and comparison. FINDINGS: Cerebrum: The ventricles are normal for age. No evidence of midline shift, mass lesion, hemorrhage or acute infarction. No extraaxial fluid collections are seen. Posterior Fossa: The cerebellum and brainstem are intact. The 4th ventricle is midline. The cerebe llopontine angle is unremarkable. Extracranial: The visualized portion of the orbits is intact. Skull: The calvaria is intact. No evidence of skull fracture. CONCLUSION: 1. Negative for acute process. Electronically signed by: Negro Zurita MD 04/21/2018 1:54 PM EDT
[2018-04-21 14:02] LABS: Prothrombin Time 10.7 sec (9.8-11.6)
[2018-04-21 14:28] LABS: Bilirubin,Urine Negative (Negative); Clarity,Urine Clear (Clear); Color,Urine Straw (Yellw/Straw); Glucose,Urine (UA) Negative (Negative); Leukocyte Esterase,Urine Negative (Negative); Nitrite,Urine Negative (Negative); Squamous Epithelial Cell,Urine <1 /hpf (0-5)
[2018-04-21 14:45] LABS: Alanine Aminotransferase 29 U/L (10-53); Albumin 3.3 g/dL (3.4-5.0); Anion Gap 8 meq/L (5-15); Aspartate Aminotransferase 19 U/L (15-37); Blood Urea Nitrogen 8 mg/dL (7-18); Calcium 8.6 mg/dL (8.5-10.1); Carbon Dioxide 26.8 meq/L (21.0-32.0); Chloride 109 meq/L (98-107); Glomerular Filtration Rate Greater Than 89 mL/min (>89); Glucose,Random 94 mg/dL (74-106); Lipase 70 U/L (73-393); Potassium 3.7 meq/L (3.5-5.1); Sodium 144 meq/L (136-145)
[2018-04-21 14:49] LABS: Alkaline Phosphatase 83 U/L (45-117); Creatine Kinase 201 U/L (26-192); Total Protein 7.3 g/dL (6.4-8.2)
[2018-04-21 15:01] LABS: CKMB Percent 0.6 % (0.0-4.0); Creatine Kinase MB 1.2 ng/mL (0.5-3.6)
--- NOTE | 2018-04-21 17:02 | CT ---
EXAM DATE: 04/21/2018 4:50 PM EDT AGE/SEX: 52 years / Female INDICATIONS: Abdominal pain. CLINICAL DATA: This is the patient's initial encounter. Patient reports that signs and symptoms have been present for 1 day and indicates a pain score of 2/10. MEDICAL/SURGICAL HISTORY: Cerebrovascular disease. Transient ischemic attack. Diabetes. Hype rtension. section. Tubal ligation. ORAL CONTRAST: No oral contrast ingested. RADIATION DOSE: 7.15 CTDI (mGy) COMPARISON: . TECHNIQUE: Multiple contiguous axial images were obtained through the abdomen and pelvis following b olus infusion of 95 ml Omnipaque 350 (iohexol) nonionic water-soluble contrast as a single exam dos e. No oral contrast ingested. Using automated exposure control and adjustment of the mA and/or kV ac cording to patient size, radiation dose was kept as low as reasonably achievable to obtain optimal di agnostic quality images. DICOM format image data is available electronically for review and comparis on. FINDINGS: The lower lungs are clear. The liver spleen pancreas and adrenals are unremarkable There is symmetrical renal function There is no ascites or adenopathy There are minimal inflammatory changes in the sigmoid colon at the level of the iliac crest that coul d be early diverticulitis. Large apparent fibroid uterus is present in the pelvis. CONCLUSION: 1. Minimal inflammatory changes sigmoid colon at the level iliac crest improved from the comparison study 2. Large fibroid uterus Electronically signed by: Negro Zurita MD 04/21/2018 5:01 PM EDT
[2018-04-21] MEDS ORDERED: Bisacodyl 10 MG Supp RECTAL PRN (17:57)
[2018-04-21] MEDS ORDERED: Acetaminophen 325 MG Tablet PO PRN (17:57)
[2018-04-21] MEDS ORDERED: Dextrose 50% in Water 50 ML Vial IV.PUSH PRN ×2 (18:35→18:38)
[2018-04-21] MEDS ORDERED: Sod Chloride 0.9% Inj 1,000 ML IV.CONT SCH (18:45)
[2018-04-21] MEDS ORDERED: Aspirin 325 MG Tablet PO SCH (18:45)
[2018-04-21] MEDS ORDERED: Lisinopril 10 MG Tablet PO SCH (18:45)
--- NOTE | 2018-04-21 18:45 | P.HP ---
History of Present Illness Primary Care Physician: No Primary Care Physician History of Present Illness: This is a 52-year-old female who presented to the emergency department because of elevated blood pressure. She was at a facility to get her insurance changed and was noted to have elevated blood pressure. States that since this morning, she has been having intermittent weakness mainly involving her left side which improves when she drinks water. She also has intermittent sharp achy left- sided headache improves when she lays down associated with palpitations like her heart is skipping. Denies chest pain, shortness of breath, diaphoresis fever, chills, dizziness, syncope, nausea, neck pain, numbness and incontinence. She has history of hypertension on lisinopril/ Hydrochlorothiazide 20/25 once a day but ran out 3 days ago. She also has diabetes on metformin and hyperlipidemia on lovastatin. States she has been under a lot of stress since her 2 months ago. In the emergency department, initial blood pressure 240/113. She received clonidine 0.2 mg with significant improvement. She also reports of several days of intermittent left upper quadrant pain associated with dark stools and constipation. CT scan showed early diverticulitis. All other systems reviewed negative. At this time, she is wanting to sign out AGAINST MEDICAL ADVICE. Patient has been extensively counseled. - Diagnosis (1) TIA (transient ischemic attack) (2) Hypertensive urgency Inpatient Certification: I certify that the inpatient services were ordered in accordance with Medicare regulations governing the order. This includes certification that hospital inpatient services are reasonable and necessary and in the case of services not specified as inpatient-only under 42 CFR 419.22(n), that they are appropriately provided as inpatient services in accordance to with the 2-midnight benchmark under 43 CFR 412.3(e) Review of Systems All other systems reviewed negative except as stated in HPI PMFSH - History History Provided By: Patient - Medical History Medical History: Medical History (Last Reviewed 04/21/18 @ 12:29 by Chasity Gonzalez MD) Depression Diabetes High cholesterol Hypertension - Surgical History Surgical History: Surgical History (Last Reviewed 04/21/18 @ 12:29 by Chasity Gonzalez MD) H/O: Hx of tubal ligation - Family History Family History: Family History (Last Reviewed 04/21/18 @ 12:29 by Chasity Gonzalez MD) Mother Stroke Father Stroke - Tobacco History Second Hand Smoke Exposure: No Smoking Status: Never smoker - Alcohol History How Often Do You Have a Drink Containing Alcohol: Never - Substance Use History Substance History: No History of Abuse - Travel History Recent Travel in the [place] Within the Last 8 Weeks: No Recent Travel Out of the Country Within the Last 8 Weeks: No - Immunization History Tetanus Immunization: <5 Years Hx Influenza Vaccine This Season: Yes Medications and Allergies Active Medications: Active Medications Acetaminophen (Tylenol) 650 mg PO Q4H PRN PRN Reason: Temp > 100.4 Al Hydroxide/Mg Hydroxide (Milk Of Magnesia Liq) 30 ml PO Q12H PRN PRN Reason: Mild Constipation Aspirin (Aspirin) 325 mg PO DAILY [facility] Bisacodyl (Dulcolax Supp) 10 mg RECTAL DAILY PRN PRN Reason: SEVERE CONSITIPATION Ciprofloxacin HCl (Cipro) 500 mg PO Q12HR [facility] Clonidine HCl (Catapres) 0.2 mg PO Q6H PRN PRN Reason: SEE LABEL COMMENTS Dextrose (D50w Vial) 50 ml IV.PUSH UNSCH PRN PRN Reason: PER HYPOGLYCEMIA PROTOCOL Dextrose (D50w Vial) 50 ml IV.PUSH UNSCH PRN PRN Reason: PER HYPOGLYCEMIA PROTOCOL Enalaprilat (Vasotec Inj) 1.25 mg IV.PUSH Q6H PRN PRN Reason: SEE LABEL COMMENTS Glucagon (Glucagon Inj) 1 mg OTHER PRN PRN PRN Reason: for Hypoglycemia Protocol Glucagon (Glucagon Inj) 1 mg OTHER UNSCH PRN PRN Reason: for Hypoglycemia Protocol Hydrochlorothiazide (Hydrodiuril) 25 mg PO DAILY [facility] Sodium Chloride (Ns Inj) 1,000 mls @ 70 mls/hr IV.CONT .[id number] [facility] Lactulose (Lactulose Liq) 30 ml PO DAILY PRN PRN Reason: SEVERE CONSITIPATION Lisinopril (Prinivil) 20 mg PO DAILY [facility] Metronidazole (Flagyl) 500 mg PO Q6HR [facility] Ondansetron HCl (Zofran Odt) 4 mg SL Q6H PRN PRN Reason: NAUSEA OR VOMITING Senna/Docusate Sodium (Duyen-Colace) 1 tab PO BID [facility] Sennosides (Senokot) 17.2 mg PO Q12H PRN PRN Reason: Moderate Constipation Sodium Chloride (Ns Flush) 2 ml IV.FLUSH PRN PRN PRN Reason: FLUSH AFTER USING IV ACCESS Sodium Chloride (Ns Flush) 2 ml IV.FLUSH PRN PRN PRN Reason: FLUSH AFTER USING IV ACCESS Sodium Chloride (Ns Flush) 2 ml IV.FLUSH BID [facility] Sodium Chloride (Ns Flush) 2 ml IV.FLUSH PRN PRN PRN Reason: FLUSH AFTER USING IV ACCESS Allergies Allergy/AdvReac Type Severity Reaction Status Date / Time No Known Allergies Allergy Verified 04/21/18 12:22 Exam Vital signs: Vital Signs 04/21/18 11:49 04/21/18 12:24 04/21/18 12:38 Temperature 98.5 F Pulse Rate 84 85 Respiratory Rate 16 18 Blood Pressure 243/113 H 176/114 H Pulse Oximetry 99 04/21/18 12:49 04/21/18 14:15 04/21/18 16:02 Temperature Pulse Rate 82 64 70 Respiratory Rate 18 16 16 Blood Pressure 61/36 L 114/71 101/61 Pulse Oximetry 96 99 98 Intake & Output 04/20/18 04/21/18 04/21/18 18:59 06:59 18:59 Weight 79.379 kg Narrative: GENERAL: Well-developed and well-nourished in no distress SKIN: Warm and dry. HEAD: Atraumatic. Normocephalic. EYES: Pupils equal and round. No scleral icterus. No injection or drainage. ENT: No nasal bleeding or discharge. Mucous membranes pink and moist. NECK: Trachea midline. No JVD. CARDIOVASCULAR: Regular rate and rhythm. RESPIRATORY: No accessory muscle use. Clear to auscultation. Breath sounds equal bilaterally. GASTROINTESTINAL: Abdomen soft, slightly tender left upper quadrant, nondistended. MUSCULOSKELETAL: Extremities without clubbing, cyanosis, or edema. No obvious deformities. NEUROLOGICAL: Awake and alert. No obvious cranial nerve deficits. Motor grossly within normal limits. Five out of 5 muscle strength in the arms and legs. Normal speech. PSYCHIATRIC: Appropriate mood and affect; insight and judgment normal. Results - Labs CBC & Chem 7: 04/21/18 14:14 Labs: Laboratory Results - last 24 hr 04/21/18 04/21/18 04/21/18 13:08 14:11 14:14 PT 10.7 INR 1.1 APTT 27.7 Sodium 144 Potassium 3.7 Chloride 109 H Carbon Dioxide 26.8 Anion Gap 8 BUN 8 Creatinine 0.66 Estimated GFR Greater than 89 Random Glucose 94 Calcium 8.6 Total Bilirubin 0.2 AST 19 ALT 29 Alkaline Phosphatase 83 Total Creatine Kinase 201 H CK-MB (CK-2) 1.2 CK-MB (CK-2) % 0.6 Troponin I Less than 0.02 L Total Protein 7.3 Albumin 3.3 L Lipase 70 L Urine Color Straw Urine Clarity Clear Urine pH 6.0 Ur Specific [place] 1.010 Urine Protein Negative Urine Glucose (UA) Negative Urine Ketones Negative Urine Occult Blood Negative Urine Nitrate Negative Urine Bilirubin Negative Urine Urobilinogen Less than 2 Ur Leukocyte Esterase Negative Urine WBC Less than 1 Ur Squamous Epith Cells <1 Micro UA Comment Culture not ind Urine Culture Comments Culture not ind - Imaging Impressions Chest X-Ray 04/21/18 12:24 CONCLUSION: No active disease. Head CT 04/21/18 12:24 CONCLUSION: 1. Negative for acute process. Abdomen/Pelvis CT 04/21/18 15:18 CONCLUSION: 1. Minimal inflammatory changes sigmoid colon at the level iliac crest improved from the comparison study 2. Large fibroid uterus Caprini VTE Risk Assessment Caprini VTE Risk Assessment: No/Low Risk (score <= 1) Caprini Risk Assessment Model: Point Value = 1 Point Value = 2 Point Value = 3 Point Value = 5 Age 41-60 Minor surgery BMI > 25 kg/m2 Swollen legs Varicose veins or History of unexplained or recurrent spontaneous Oral contraceptives or hormone replacement Sepsis (< 1 month) Serious lung disease, including pneumonia (< 1 month) Abnormal pulmonary function Acute myocardial infarction Congestive heart failure (< 1 month) History of inflammatory bowel disease Medical patient at bed rest Age 61-74 Arthroscopic surgery Major open surgery (> 45 min) Laparoscopic surgery (> 45 min) Malignancy Confined to bed (> 72 hours) Immobilizing plaster cast Central venous access Age >= 75 History of VTE Family history of VTE Factor V Leiden Prothrombin [id number] Lupus anticoagulant Anticardiolipin antibodies Elevated serum homocysteine Heparin-induced thrombocytopenia Other congenital or acquired thrombophilia Stroke (< 1 month) Elective arthroplasty Hip, pelvis, or leg fracture Acute spinal cord injury (< 1 month) Prophylaxis Regimen: Total Risk Factor Score Risk Level Prophylaxis Regimen 0-1 Low Early ambulation 2 Moderate Order ONE of the following: *Sequential Compression Device (SCD) *Heparin 5000 units SQ BID 3-4 Higher Order ONE of the following medications: *Heparin 5000 units SQ TID *Enoxaparin/Lovenox 40 mg SQ daily (WT < 150 kg, CrCl > 30 mL/min) *Enoxaparin/Lovenox 30 mg SQ daily (WT < 150 kg, CrCl > 10-29 mL/min) *Enoxaparin/Lovenox 30 mg SQ BID (WT < 150 kg, CrCl > 30 mL/min) AND/OR *Sequential Compression Device (SCD) 5 or more Highest Order ONE of the following medications: *Heparin 5000 units SQ TID (Preferred with Epidurals) *Enoxaparin/Lovenox 40 mg SQ daily (WT < 150 kg, CrCl > 30 mL/min) *Enoxaparin/Lovenox 30 mg SQ daily (WT < 150 kg, CrCl > 10-29 mL/min) *Enoxaparin/Lovenox 30 mg SQ BID (WT < 150 kg, CrCl > 30 mL/min) AND *Sequential Compression Device (SCD) Assessment and Plan - Assessment (1) TIA (transient ischemic attack) Code(s): G45.9 - Transient cerebral ischemic attack, unspecified Status: Acute (2) Hypertensive urgency Code(s): I16.0 - Hypertensive urgency Status: Acute - Plan This is a 52-year-old diabetic and hypertensive female who presented to the emergency department because of elevated blood pressure associated with headache , left-sided weakness and palpitations. She also has left upper quadrant pain with dark stools and constipation. Abdominal CT shows early sigmoid diverticulitis Hypertension urgency. This is improved after clonidine. We will continue to monitor with as needed IV Vasotec and clonidine. Restart home medication of lisinopril and her chlorothiazide. Patient has been counseled regarding compliance. Chest x-ray image interpreted by me with no acute cardiopulmonary disease. EKG has been ordered TIA versus CVA. At this time she is neurologically intact. Initial head CT unremarkable. Start aspirin, neurochecks and initiate stroke workup which will include brain MRI, carotid ultrasound and echocardiogram. Check lipid profile in A1c. Neurochecks. Neurology consult. PT, OT and ST evaluation Early sigmoid diverticulitis. Guaiac negative 1. Start ciprofloxacin and Flagyl with pain management. Avoid seeds, nuts, corn and constipation. Patient needs to have colonoscopy outpatient DVT prophylaxis with SCD and early ambulation At this time, she is wanting to sign out AGAINST MEDICAL ADVICE. Patient has been extensively counseled. Discharge Planning: HOme (1) TIA (transient ischemic attack) Qualifiers: Qualified Code(s): G45.9 - Transient cerebral ischemic attack, unspecified
--- NOTE | 2018-04-21 19:01 | P.AMA ---
AMA Note - AMA Note AMA Statement: Patient Virgilio Morfin has decided to leave the hospital against medical advice. This patient has the capacity to refuse care and understands the risks of leaving, including permanent disability and/or , and has had an opportunity to ask questions about his/her condition. The patient has been informed that he/she may return for care at any time, and follow up has been arranged/advised. - AMA Note Discharge Disposition: 01 Discharge Home Patient Condition on Discharge: Stable
[2018-04-21] MEDS ORDERED: Insulin NovoLOG Aspart Correctional Sugar Inj SQ SCH (21:00)
[2018-04-21] MEDS ORDERED: Senna/Docusate Sodium 8.6/50 MG Tablet PO SCH (21:00)
[2018-04-21] MEDS ORDERED: Ciprofloxacin 500 MG Tablet PO SCH (21:00)
[2018-04-22] MEDS ORDERED: metroNIDAZOLE 500 MG Tablet PO SCH
[2018-04-22] MEDS ORDERED: hydroCHLOROthiazide 25 MG Tablet PO SCH (09:00)
== END 2018-04-21 19:30 | disposition left against medical advice (07) ==
LOC: NEDA 10:58 → NEPC 10:58 → NEDA 19:07
PROVIDERS: ADMIT Internal Medicine; ATTEND Internal Medicine